=== PATIENT | female | born 1955 | race Caucasian/White ===

== ENCOUNTER → 2017-10-19 10:04 | Outpatient (CLI) | payer BC, SELFPAY ==
--- NOTE | 2017-10-19 10:21 | US_ITS ---
US thyroid HISTORY: Follow-up thyroid nodules ITS.REASON: NECK MASS ORDERING PHYSICIAN: Jorge Soares MD PATIENT AGE: 61 years COMPARISON: 12/04/2014 FINDINGS: The right lobe measures 6.5 x 2.8 x 3.4 cm. The left lobe measures 8 x 3 x 3.6 cm. There are multiple bilateral thyroid nodules with a partially cystic nodule involving the mid aspect of the right lobe at 2.6 cm previously 2.3 cm. A cystic/solid nodules present posteriorly at 2.4 cm previously 1.6 cm. On the left there is a mixed cystic and solid nodule which measures 3.3 x 2.4 cm previously 3 x 1.8 cm. IMPRESSION: Thyromegaly with multiple bilateral complex thyroid nodules as described above. The thyroid gland and the nodules are slightly larger.
== END ==
PROVIDERS: Family Provider Family Medicine; PCP Internal Medicine Adolescent Medicine; Visit Provider Internal Medicine Adolescent Medicine
DX: R22.1 Localized swelling, mass and lump, neck (principal); E04.1 Nontoxic single thyroid nodule
CPT/HCPCS: 76536

== ENCOUNTER → 2018-01-28 15:23 | Outpatient (CLI) | payer BC, SELFPAY ==
--- NOTE | 2018-01-28 15:26 | US_ITS ---
US thyroid HISTORY: Follow-up thyroid nodule ITS.REASON: hx thyroid nodule- dom right nodule ORDERING PHYSICIAN: Saran Mahoney MD PATIENT AGE: 62 years Comparison: 10/19/2017 FINDINGS: Right lobe measures 3.6 x 3.2 x 6 cm. There are multiple cystic, solid, and mixed nodules including a partially cystic nodule in the upper pole 2.7 cm unchanged. Mostly cystic nodule mid polar region at 2 cm unchanged. Solid 2.5 cm nodule lower pole unchanged The left lobe is enlarged at 6.5 x 3 cm with multiple cystic and solid nodules. Mixed nodule in the upper pole 1.8 cm unchanged. Mixed solid/cystic nodule upper pole 3 cm unchanged. Complex 4.6 x 3.7 cm nodule lower pole unchanged. IMPRESSION: No change multinodular goiter
== END ==
PROVIDERS: Family Provider Family Medicine; PCP Internal Medicine Adolescent Medicine; Visit Provider Otolaryngology
DX: E04.1 Nontoxic single thyroid nodule (principal); E04.9 Nontoxic goiter, unspecified
CPT/HCPCS: 76536

== ENCOUNTER → 2018-07-09 15:23 | Outpatient (CLI) | payer BC, SELFPAY ==
--- NOTE | 2018-07-09 15:27 | US_ITS ---
US thyroid HISTORY: ITS.REASON: goiter. dominate right nodule 2.7cm ORDERING PHYSICIAN: Saran Mahoney MD PATIENT AGE: 62 years Comparison: 01/28/2018 FINDINGS: The right lobe is 6.8 x 3.2 x 3.5 cm. Nodule A: 3.2 x 2 cm partially cystic nodule within the upper pole. Unchanged Nodule B: Mostly cystic 2.7 cm nodule upper pole. Unchanged Nodule C: 2.7 cm x 1.6 solid nodule lower pole. Unchanged. Nodular D: 15 mm mixed echogenic nodule inferior pole mandible present previously but not well demonstrated The left lobe is 6.9 x 3.9 x 4.2 cm with multiple nodules. Nodule A: Mixed echogenic 2.2 cm upper pole probably unchanged Nodule D: Solid and cystic 3 cm nodule mid polar region unchanged Nodule C: Complex cystic 2.6 cm nodule mid pole unchanged Nodule D: 2.7 cm mixed nodule lower pole unchanged IMPRESSION: Overall no change in the multinodular goiter
== END ==
PROVIDERS: PCP Internal Medicine Adolescent Medicine; Visit Provider Otolaryngology
DX: E04.1 Nontoxic single thyroid nodule (principal); E04.9 Nontoxic goiter, unspecified
CPT/HCPCS: 76536

== ENCOUNTER → 2018-07-29 09:49 | Outpatient (CLI) | payer BC, SELFPAY ==
--- NOTE | 2018-07-29 | US_ITS ---
FNA w guidance, US thyroid HISTORY: Right thyroid dominant nodule ITS.REASON: thyroid nodule ORDERING PHYSICIAN: Saran Mahoney MD PATIENT AGE: 62 years COMPARISON: 07/09/2018 Prebiopsy ultrasound: Ultrasound performed of the right lobe of the thyroid gland for biopsy planning. The nodule was demonstrated and appropriate site marked for biopsy TECHNIQUE: Following obtaining informed consent, using aseptic technique and local anesthesia with buffered lidocaine, fine-needle aspiration was performed of the nodule of interest using sonographic guidance. 3 passes were made into the nodule with a 25-gauge needle. Specimen was given to cytology. Approximately 3 cc of greenish fluid was aspirated during the FNA. Material was present within the aspirate that was felt adequate. The patient tolerated the procedure well without evidence of immediate complications and left the ultrasound suite in stable condition. CYTOLOGY:Nondiagnostic aspirate IMPRESSION: The aspirate was nondiagnostic. There were no immediate complications. Recommend repeat FNA with city director present during the procedure.
== END ==
PROVIDERS: PCP Internal Medicine Adolescent Medicine; Visit Provider Otolaryngology
DX: E04.9 Nontoxic goiter, unspecified (principal)
CPT/HCPCS: 10022; 76536

== ENCOUNTER → 2018-09-23 11:57 | Outpatient (CLI) | payer BC, SELFPAY ==
[2018-09-23 13:03] LABS: Basophils % 0.5 % (0.1-2.0); Eosinophils # 0.1 K/mm3 (0.0-0.4); Eosinophils % 2.3 % (0.1-12.0); Hemoglobin 13.3 g/dL (12.2-16.2); Lymphocytes # 1.5 K/mm3 (0.7-4.5); Lymphocytes % 31.9 % (10-50); Mean Corpuscular HGB Conc 32.6 g/dL (31.8-35.4); Mean Corpuscular Hemoglobin 31.3 pg (27.0-31.2); Mean Corpuscular Volume 96.2 fl (81-99); Mean Platelet Volume 7.9 fl (7.4-10.4); Monocytes # 0.2 K/mm3 (0.1-1.0); Monocytes % 4.3 % (1.7-9.3); Neutrophils # 2.8 K/mm3 (1.8-7.8); Platelet Count 186 K/mm3 (142-424); Red Blood Count 4.26 M/mm3 (4.20-5.40); Red Cell Distribution Width 13.2 % (11.5-17.5); White Blood Count 4.6 K/mm3 (4.8-10.8)
[2018-09-23 13:07] LABS: Alanine Aminotransferase 35 U/L (12-78); Albumin Level 3.6 gm/dL (3.4-5.0); Albumin/Globulin Ratio 1.1 (1.1-1.8); Alkaline Phosphatase 107 U/L (46-116); Aspartate Amino Transferase 43 U/L (15-37); Bilirubin,Total 0.8 mg/dL (0.2-1.0); Blood Urea Nitrogen 14 mg/dL (7-18); Calcium 8.8 mg/dL (8.5-10.1); Carbon Dioxide 29 mmol/L (21.0-32.0); Chloride 106 mmol/L (98-107); Creatinine,Serum 0.73 mg/dL (0.55-1.02); Estimated Glomerular Filt Rate 81 ml/min (>60); GFR (African American) 98 ML/MIN (>60); Globulin 3.2 gm/dl (1.3-3.2); Glucose 109 mg/dL (74-106); Sodium 143 mmol/L (136-145); Total Protein,Serum 6.8 gm/dL (6.4-8.2)
== END ==
PROVIDERS: PCP Internal Medicine Adolescent Medicine; Visit Provider Otolaryngology
DX: Z01.810 Encounter for preprocedural cardiovascular examination (principal); Z01.812 Encounter for preprocedural laboratory examination
CPT/HCPCS: 36415; 80053; 85025; 93005

== ENCOUNTER → 2018-11-04 10:31 | Outpatient (CLI) | payer BC, SELFPAY ==
[2018-11-04 11:59] LABS: Calcium 9.3 mg/dL (8.5-10.1); Free T4 (Free Thyroxine) 1.27 ng/dl (0.76-1.46); Thyroid Stimulating Hormone 0.03 uIU/ml (0.358-3.740)
== END ==
PROVIDERS: Visit Provider Otolaryngology
DX: D34 Benign neoplasm of thyroid gland (principal); E06.5 Other chronic thyroiditis; Z98.890 Other specified postprocedural states
CPT/HCPCS: 36415; 82310; 84439; 84443

== ENCOUNTER → 2018-12-27 12:22 | Outpatient (POV) | payer BC, SELFPAY | PROVIDERS: Visit Provider Specialist | DX: R20.2 Paresthesia of skin (principal) | CPT/HCPCS: 95886; 95909 ==

== ENCOUNTER → 2019-06-14 09:04 | Outpatient (CLI) | payer BC, SELFPAY ==
[2019-06-14 09:37] LABS: Basophils % 0.6 % (0.1-2.0); Eosinophils # 0.1 K/mm3 (0.0-0.4); Hematocrit 41.9 % (37.0-47.0); Lymphocytes # 1.6 K/mm3 (0.7-4.5); Lymphocytes % 29.6 % (10-50); Mean Corpuscular HGB Conc 33.3 g/dL (31.8-35.4); Mean Corpuscular Hemoglobin 32.2 pg (27.0-31.2); Mean Corpuscular Volume 96.6 fl (81-99); Mean Platelet Volume 9.1 fl (7.4-10.4); Monocytes # 0.3 K/mm3 (0.1-1.0); Monocytes % 5.6 % (1.7-9.3); Neutrophils # 3.3 K/mm3 (1.8-7.8); Neutrophils % 62.2 % (37.0-80.0); Platelet Count 190 K/mm3 (142-424); Red Blood Count 4.34 M/mm3 (4.20-5.40); Red Cell Distribution Width 13.3 % (11.5-17.5); White Blood Count 5.3 K/mm3 (4.8-10.8)
[2019-06-14 11:07] LABS: Alanine Aminotransferase 35 U/L (12-78); Albumin Level 3.7 gm/dL (3.4-5.0); Albumin/Globulin Ratio 1.2 (1.1-1.8); Alkaline Phosphatase 124 U/L (46-116); Anion Gap 9.2 mEq/L (5-15); Aspartate Amino Transferase 34 U/L (15-37); Blood Urea Nitrogen 19 mg/dL (7-18); Carbon Dioxide 32 mmol/L (21.0-32.0); Chloride 106 mmol/L (98-107); Chol/HDL Ratio 3.3 (1-3.5); Cholesterol 230 mg/dL (140-200); Creatinine,Serum 0.74 mg/dL (0.55-1.02); Estimated Glomerular Filt Rate 80 ml/min (>60); Free Thyroxine Index 3.2 ug/dL (5.93-13.13); GFR (African American) 97 ML/MIN (>60); Glucose 110 mg/dL (74-106); HDL Cholesterol 69 mg/dL (29-89); LDL Cholesterol 141 mg/dL (0-130); Potassium 3.2 mmoL/L (3.5-5.1); Sodium 144 mmol/L (136-145); Thyroid Stimulating Hormone 0.02 uIU/ml (0.358-3.740); Total Protein,Serum 6.7 gm/dL (6.4-8.2); Triglycerides 98 mg/dL (30-200); Triiodothryronine (T3) Uptake 36 % (31-39); VLDL Cholesterol 20 mg/dL (0-40)
[2019-06-15 16:25] LABS: Vitamin B12 743 pg/mL (232-1245); Vitamin D 25 Hydroxy 50.9 ng/mL (30.0-100.0)
== END ==
PROVIDERS: Visit Provider Internal Medicine Adolescent Medicine
DX: E78.2 Mixed hyperlipidemia (principal); E05.90 Thyrotoxicosis, unspecified without thyrotoxic crisis or storm; E55.9 Vitamin D deficiency, unspecified; E53.8 Deficiency of other specified B group vitamins
CPT/HCPCS: 36415; 80053; 80061; 82607; 82652; 84436; 84443; 84479; 85025

== ENCOUNTER → 2019-09-12 10:24 | Outpatient (CLI) | payer BC, SELFPAY ==
[2019-09-12 11:59] LABS: Alkaline Phosphatase 99 U/L (46-116); Blood Urea Nitrogen 18 mg/dL (7-18); Chloride 105 mmol/L (98-107); Thyroid Stimulating Hormone 0.06 uIU/ml (0.358-3.740)
[2019-09-12 12:01] LABS: Alanine Aminotransferase 13 U/L (12-78); Albumin Level 3.6 gm/dL (3.4-5.0); Albumin/Globulin Ratio 1.2 (1.1-1.8); Anion Gap 11.8 mEq/L (5-15); Aspartate Amino Transferase 23 U/L (15-37); Bilirubin,Total 0.7 mg/dL (0.2-1.0); Calcium 8.8 mg/dL (8.5-10.1); Carbon Dioxide 31 mmol/L (21.0-32.0); Chol/HDL Ratio 3.5 (1-3.5); Cholesterol 209 mg/dL (140-200); Estimated Glomerular Filt Rate 56 ml/min (>60); GFR (African American) 68 ML/MIN (>60); Glucose 102 mg/dL (74-106); HDL Cholesterol 59 mg/dL (29-89); LDL Cholesterol 130 mg/dL (0-130); Potassium 3.8 mmoL/L (3.5-5.1); Sodium 144 mmol/L (136-145); Total Protein,Serum 6.6 gm/dL (6.4-8.2); Triglycerides 100 mg/dL (30-200); VLDL Cholesterol 20 mg/dL (0-40)
== END ==
PROVIDERS: Visit Provider Internal Medicine Adolescent Medicine
DX: E89.0 Postprocedural hypothyroidism (principal); E87.6 Hypokalemia; E78.2 Mixed hyperlipidemia
CPT/HCPCS: 36415; 80053; 80061; 84443

== ENCOUNTER → 2020-02-02 15:46 | Outpatient (CLI) | payer BC, SELFPAY ==
[2020-02-02 19:36] LABS: Free T4 (Free Thyroxine) 1.04 ng/dl (0.78-2.19)
[2020-02-02 19:49] LABS: Thyroid Stimulating Hormone 0.29 uIU/mL (0.465-4.68)
== END ==
PROVIDERS: Visit Provider Otolaryngology
DX: E03.9 Hypothyroidism, unspecified (principal)
CPT/HCPCS: 36415; 84439; 84443

== ENCOUNTER → 2020-02-20 12:53 | Outpatient (CLI) | payer BC, SELFPAY ==
--- NOTE | 2020-02-20 12:54 | US_ITS ---
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 A complex nodules present in the mid aspect of the left lobe of the thyroid gland at 3.7 x 3 cm containing both cystic and solid components. The largest cystic component measures 2.6 cm with the solid component measuring approximately 2.8 cm. This is overall not significantly changed from the previous exam. IMPRESSION: Complex cystic and solid mass of the left lobe of the thyroid gland not significantly changed. Prior right thyroidectomy Dictated by: Chris Oneill MD 02/21/2020 11:19 Electronically signed by Chris Oneill MD in [place] 02/21/2020 11:19
== END ==
PROVIDERS: PCP Internal Medicine Adolescent Medicine; Visit Provider Otolaryngology
DX: E03.9 Hypothyroidism, unspecified (principal)
CPT/HCPCS: 76536

== ENCOUNTER → 2020-03-21 09:49 | Outpatient (CLI) | payer BC, SELFPAY ==
--- NOTE | 2020-03-21 09:49 | US_ITS ---
PROCEDURE: US FNA THYROID CLINICAL INDICATION: Dominant nodule on the left COMPARISON: US US THYROID from 02/20/2020 TECHNIQUE: Pre biopsy ultrasound demonstrates multiple left thyroid nodules. The dominant nodule in the mid polar region with cystic component was targeted for biopsy. Following obtaining informed consent, using aseptic technique and local anesthesia with buffered lidocaine, fine-needle aspiration was performed of the nodule of interest using sonographic guidance. 3 passes were made into the nodule with a [id number] needle. Specimen was given to cytology. FINDINGS: CYTOLOGY: Consistent with benign cystic follicular nodule IMPRESSION: Ultrasound-guided thyroid FNA of the left lobe demonstrates a benign cystic follicular nodule. The patient tolerated the procedure well without evidence of immediate complications and left the ultrasound suite in stable condition. Dictated b Chris Oneill MD 03/23/2020 10:58 Chris Oneill MD in [facility] 03/23/2020 10:58
== END ==
PROVIDERS: PCP Internal Medicine Adolescent Medicine; Visit Provider Otolaryngology
DX: E04.1 Nontoxic single thyroid nodule (principal)
CPT/HCPCS: 10005; 76942

== ENCOUNTER → 2020-04-05 11:10 | Outpatient (CLI) | payer BC, SELFPAY ==
[2020-04-05 11:38] LABS: Basophils % 0.4 % (0.1-2.0); Eosinophils # 0.2 K/mm3 (0.0-0.4); Eosinophils % 2.3 % (0.1-12.0); Hematocrit 39.6 % (37.0-47.0); Hemoglobin 14.3 g/dL (12.2-16.2); Lymphocytes % 26.9 % (10-50); Mean Corpuscular HGB Conc 36.2 g/dL (31.8-35.4); Mean Corpuscular Hemoglobin 33.8 pg (27.0-31.2); Mean Corpuscular Volume 93.5 fl (81-99); Mean Platelet Volume 8.8 fl (7.4-10.4); Monocytes # 0.3 K/mm3 (0.1-1.0); Monocytes % 4.1 % (1.7-9.3); Neutrophils % 66.4 % (37.0-80.0); Platelet Count 199 K/mm3 (142-424); Red Blood Count 4.23 M/mm3 (4.20-5.40); Red Cell Distribution Width 13.4 % (11.5-17.5); White Blood Count 7.5 K/mm3 (4.8-10.8)
[2020-04-05 12:06] LABS: Chloride 104 mmol/L (98-107); Potassium 3.6 mmoL/L (3.5-5.1); Sodium 141 mmol/L (136-145)
[2020-04-05 12:08] LABS: Alanine Aminotransferase 24 U/L (12-78); Aspartate Amino Transferase 55 U/L (14-36); Blood Urea Nitrogen 18 mg/dl (7-17); Estimated Glomerular Filt Rate 73 ml/min (>60); GFR (African American) 88 ML/MIN (>60)
[2020-04-05 12:09] LABS: Albumin Level 4.2 g/dl (3.5-5.0); Albumin/Globulin Ratio 1.6 (1.1-1.8); Alkaline Phosphatase 115 U/L (38-126); Anion Gap 12.6 mEq/L (5-15); Bilirubin,Total 1.2 mg/dl (0.2-1.3); Calcium 9.3 mg/dl (8.4-10.2); Carbon Dioxide 28 mmol/L (22.0-30.0); Cholesterol 219 mg/dl (140-200); Globulin 2.6 g/dL (1.3-3.2); Glucose 120 mg/dl (74-100); Total Protein,Serum 6.8 g/dl (6.3-8.2); Triglycerides 142 mg/dl (30-150); VLDL Cholesterol 28 mg/dL (0-40)
[2020-04-05 12:10] LABS: Chol/HDL Ratio 3.5 (1-3.5); HDL Cholesterol 62 mg/dl (40-60)
[2020-04-05 12:21] LABS: Direct LDL Cholesterol 121.18 mg/dL (100-129)
[2020-04-05 12:26] LABS: 25-OH Vitamin D, Total 65.1 ng/mL (30-100); Triiodothryronine (T3) Uptake 34 % (23.5-40.5)
[2020-04-05 12:27] LABS: Free Thyroxine Index 3.2 ug/dL (5.93-13.13); T4 (Thyroxine) 9.4 ug/dl (5.53-11.0)
[2020-04-05 12:41] LABS: Thyroid Stimulating Hormone 0.02 uIU/mL (0.465-4.68)
== END ==
PROVIDERS: Visit Provider Internal Medicine Adolescent Medicine
DX: E05.90 Thyrotoxicosis, unspecified without thyrotoxic crisis or storm (principal); E78.2 Mixed hyperlipidemia; E55.9 Vitamin D deficiency, unspecified
CPT/HCPCS: 36415; 80053; 80061; 82306; 84436; 84443; 84479; 85025

== ENCOUNTER → 2020-07-16 12:48 | Outpatient (CLI) | payer BC, SELFPAY ==
--- NOTE | 2020-07-16 12:48 | US_ITS ---
PROCEDURE: US THYROID CLINICAL INDICATION: hx nodule Follow-up thyroid nodule COMPARISON: US THY US THYROID from 12/04/2014 US US THYROID from 02/20/2020 US US FNA THYROID from 03/21/2020 FINDINGS: The right lobe has been removed. Multinodular goiter is noted on the left with cystic and solid components of multiple nodules. In the upper pole there is a 19 mm nodule with cystic and solid components unchanged. In the mid polar region there is a 3 cm cystic and solid nodule not significantly changed. A cyst is present in the lower pole at 19 mm. An additional cystic and solid nodule at 3 cm is present in the lower pole with a sister ule cystic component unchanged. IMPRESSION: No change multinodular goiter on the left. Prior right thyroidectomy Dictated by: Chris Oneill MD 07/17/2020 12:47 Chris Oneill MD in [facility] 07/17/2020 12:47
== END ==
PROVIDERS: PCP Internal Medicine Adolescent Medicine; Visit Provider Otolaryngology
DX: E04.1 Nontoxic single thyroid nodule (principal)
CPT/HCPCS: 76536

== ENCOUNTER → 2020-07-16 14:05 | Outpatient (CLI) | payer BC, SELFPAY ==
[2020-07-16 16:19] LABS: Thyroid Stimulating Hormone 0.02 uIU/mL (0.465-4.68)
== END ==
PROVIDERS: Visit Provider Otolaryngology
DX: E04.1 Nontoxic single thyroid nodule (principal)
CPT/HCPCS: 36415; 84439; 84443

== ENCOUNTER → 2021-01-24 11:01 | Outpatient (CLI) | payer BC, SELFPAY ==
[2021-01-24 12:17] LABS: Free T4 (Free Thyroxine) 1.46 ng/dl (0.78-2.19)
[2021-01-24 12:31] LABS: Thyroid Stimulating Hormone 0.02 uIU/mL (0.465-4.68)
--- NOTE | 2021-01-24 14:21 | US_ITS ---
PROCEDURE: US THYROID CLINICAL INDICATION: hx thyroid nodule COMPARISON: US US THYROID from 02/20/2020 US US FNA THYROID from 03/21/2020 US US THYROID from 07/16/2020 FINDINGS: Right lobe: Status post right thyroidectomy Left lobe: 4.0cm x 7.8cm x 4.7cm.. There are multiple cystic, mixed, and solid nodules of the left lobe of the thyroid gland. In the upper pole there is a mixed nodule at 1.5 x 1.7 cm not significantly changed. In the mid polar region mixed solid and cystic nodule is present at 2.6 x 2.6 cm not significantly changed. In the mid polar region there is a an 18 mm cyst unchanged. In the lower pole there is a 4 x 4 cm nodule not significantly changed. Mixed nodule Isthmus: Unremarkable Additional findings: IMPRESSION: No change multinodular goiter on the left and the previous right thyroidectomy Dictated by: Chris Oneill MD 01/25/2021 08:42 Chris Oneill MD in [facility] 01/25/2021 08:42
[2021-01-25 09:18] LABS: Thyroid Peroxidase Antibodies <9 IU/mL (0-34)
[2021-01-29 13:04] LABS: Thyroid Stimulating Immunoglob <0.10 IU/L (0.00-0.55)
== END ==
PROVIDERS: PCP Internal Medicine Adolescent Medicine; Visit Provider Otolaryngology
DX: E03.9 Hypothyroidism, unspecified (principal); E04.9 Nontoxic goiter, unspecified
CPT/HCPCS: 36415; 76536; 84439; 84443; 84445; 86376

== ENCOUNTER → 2021-09-03 11:14 | Outpatient (CLI) | payer BC, SELFPAY ==
[2021-09-03 11:35] LABS: Basophils # 0.1 K/mm3 (0-0.2); Basophils % 2.1 % (0.1-2.0); Eosinophils # 0.2 K/mm3 (0.0-0.4); Eosinophils % 3.9 % (0.1-12.0); Hematocrit 44.1 % (37.0-47.0); Hemoglobin 14.7 g/dL (12.2-16.2); Lymphocytes # 2.5 K/mm3 (0.7-4.5); Lymphocytes % 40.9 % (10-50); Mean Corpuscular HGB Conc 33.3 g/dL (31.8-35.4); Mean Corpuscular Hemoglobin 32.4 pg (27.0-31.2); Mean Corpuscular Volume 97.1 fl (81-99); Mean Platelet Volume 8.5 fl (7.4-10.4); Monocytes # 0.3 K/mm3 (0.1-1.0); Monocytes % 4.3 % (1.7-9.3); Neutrophils # 2.9 K/mm3 (1.8-7.8); Neutrophils % 48.8 % (37.0-80.0); Platelet Count 217 K/mm3 (142-424); Red Blood Count 4.54 M/mm3 (4.20-5.40); Red Cell Distribution Width 14.3 % (11.5-17.5)
[2021-09-03 12:09] LABS: Alanine Aminotransferase 30 U/L (12-78); Albumin Level 4.6 g/dl (3.5-5.0); Albumin/Globulin Ratio 1.9 (1.1-1.8); Alkaline Phosphatase 112 U/L (38-126); Anion Gap 8.8 mEq/L (5-15); Aspartate Amino Transferase 55 U/L (14-36); Bilirubin,Total 0.8 mg/dl (0.2-1.3); Blood Urea Nitrogen 18 mg/dl (7-17); Calcium 9.6 mg/dl (8.4-10.2); Carbon Dioxide 31 mmol/L (22.0-30.0); Chloride 102 mmol/L (98-107); Chol/HDL Ratio 3.8 (1-3.5); Cholesterol 257 mg/dl (140-200); Estimated Glomerular Filt Rate 63 ml/min (>60); GFR (African American) 77 ML/MIN (>60); Globulin 2.4 g/dL (1.3-3.2); Glucose 126 mg/dl (74-100); HDL Cholesterol 67 mg/dl (40-60); Potassium 3.8 mmoL/L (3.5-5.1); Sodium 138 mmol/L (136-145); Triglycerides 126 mg/dl (30-150); VLDL Cholesterol 25 mg/dL (0-40)
[2021-09-03 12:27] LABS: 25-OH Vitamin D, Total 60.1 ng/mL (30-100); Free Thyroxine Index 3.1 ug/dL (5.93-13.13); T4 (Thyroxine) 9.8 ug/dl (5.53-11.0); Triiodothryronine (T3) Uptake 32 % (23.5-40.5)
[2021-09-03 12:40] LABS: Thyroid Stimulating Hormone 0.07 uIU/mL (0.465-4.68)
== END ==
PROVIDERS: PCP Internal Medicine Adolescent Medicine; Visit Provider Internal Medicine Adolescent Medicine
DX: E05.90 Thyrotoxicosis, unspecified without thyrotoxic crisis or storm (principal); E78.2 Mixed hyperlipidemia; E55.9 Vitamin D deficiency, unspecified
CPT/HCPCS: 36415; 80053; 80061; 82306; 84436; 84443; 84479; 85025

== ENCOUNTER → 2022-03-10 12:09 | Outpatient (CLI) | payer BC, SELFPAY ==
--- NOTE | 2022-03-10 12:13 | XR_ITS ---
FINAL REPORT CLINICAL HISTORY: RIGHT FOOT PAIN; ACUTE PAIN DUE TO TRAUMA FINDINGS: RIGHT FOOT Three views of the right foot demonstrate acute displaced fractures of the distal 3rd and 4th metatarsals. There is an age indeterminate fracture of the distal phalanx of the 3rd toe which may also be acute. 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 There is soft tissue edema of the forefoot. IMPRESSION: Acute fractures of the distal 3rd and 4th metatarsals. Fracture of the distal phalanx of the 3rd toe may also be acute. Reviewed, Interpreted and Dictated by Merna Ortega MD Transcribed by Karin Gil Authenticated and [facility]
== END ==
PROVIDERS: PCP Internal Medicine Adolescent Medicine; Visit Provider Nurse Practitioner Family
DX: M79.671 Pain in right foot (principal); G89.11 Acute pain due to trauma
CPT/HCPCS: 73630

== ENCOUNTER 2022-03-10 13:20 | Outpatient (RCR) | payer BC, SELFPAY | END 2022-03-10 14:20 | disposition home or self-care (01) | LOC: PT 13:20 | PROVIDERS: Visit Provider Nurse Practitioner Family | DX: S92.334A Nondisplaced fracture of third metatarsal bone, right foot, initial encounter for closed fracture (principal) | CPT/HCPCS: 97760 ==

== ENCOUNTER 2022-07-31 11:00 | Outpatient (RCR) | payer BC, SELFPAY | END 2022-07-31 11:05 | disposition home or self-care (01) | LOC: PT 11:00 | PROVIDERS: PCP Internal Medicine Adolescent Medicine; Visit Provider Nurse Practitioner Family | DX: M79.671 Pain in right foot (principal); S92.501A Displaced unspecified fracture of right lesser toe(s), initial encounter for closed fracture; S92.341A Displaced fracture of fourth metatarsal bone, right foot, initial encounter for closed fracture; S92.331A Displaced fracture of third metatarsal bone, right foot, initial encounter for closed fracture; S99.921A Unspecified injury of right foot, initial encounter | CPT/HCPCS: 97010; 97014; 97016; 97110; 97112; 97140; 97163; 97164; 97530; 97535; G0283 ==

== ENCOUNTER → 2022-08-14 14:37 | Outpatient (CLI) | payer BC, SELFPAY ==
--- NOTE | 2022-08-14 14:43 | XR_ITS ---
FINAL REPORT CLINICAL HISTORY: RT ANKLE PAIN FINDINGS: RIGHT ANKLE: Three views of the right ankle were obtained. There is postoperative change in the medial midfoot with a screw plate and multiple screws. There is a nondisplaced fracture of the posterior distal tibia. There is a probable vertical fracture in the medial tibia extending to the tibiotalar joint. There is a small calcaneal spur. There are mild degenerative changes. Soft tissue swelling is greatest laterally. IMPRESSION: Nondisplaced fracture of the posterior distal tibia with a probable vertical fracture medially extending to the tibiotalar joint. Reviewed, Interpreted and Dictated by Juan Luis Spann III, MD Transcribed by Dayne Prajapati Authenticated and [facility]
--- NOTE | 2022-08-14 14:43 | XR_ITS ---
FINAL REPORT CLINICAL HISTORY: RT FOOT PAIN FINDINGS: 3 views of the right foot were obtained. There is a possible nondisplaced fracture of the inferior tip of the lateral malleolus. There are chronic fractures of the distal 3rd and 4th metatarsals. There is lucency through the proximal lateral aspect of the 1st proximal phalanx. A nondisplaced fracture in this region cannot be excluded. There are mild degenerative changes. There is postoperative change involving the medial cuneiform and 1st metatarsal. There is postoperative change of the distal 1st metatarsal. IMPRESSION: Possible nondisplaced fracture of the inferior tip of the lateral malleolus. Postoperative changes. Lucency in the proximal lateral aspect of the 1st proximal phalanx. Nondisplaced fracture not excluded. Chronic fractures of the distal 3rd and 4th metatarsals. Reviewed, Interpreted and Dictated by Juan Luis Spann III, MD Transcribed by Dayne Prajapati Authenticated and [facility]
== END ==
PROVIDERS: PCP Internal Medicine Adolescent Medicine; Visit Provider Nurse Practitioner Family
DX: M25.571 Pain in right ankle and joints of right foot (principal); M79.671 Pain in right foot
CPT/HCPCS: 73610; 73630

== ENCOUNTER → 2022-12-05 10:49 | Outpatient (CLI) | payer MEDICARE, BC, SELFPAY ==
[2022-12-05 11:43] LABS: Basophils % 0.8 % (0.1-2.0); Eosinophils # 0.1 K/mm3 (0.0-0.4); Eosinophils % 1.9 % (0.1-12.0); Hematocrit 41.3 % (37.0-47.0); Hemoglobin 13.9 g/dL (12.2-16.2); Lymphocytes % 42.7 % (10-50); Mean Corpuscular HGB Conc 33.5 g/dL (31.8-35.4); Mean Corpuscular Hemoglobin 31.5 pg (27.0-31.2); Mean Corpuscular Volume 93.9 fl (81-99); Mean Platelet Volume 8.8 fl (7.4-10.4); Monocytes # 0.2 K/mm3 (0.1-1.0); Neutrophils # 2.4 K/mm3 (1.8-7.8); Neutrophils % 49.6 % (37.0-80.0); Platelet Count 229 K/mm3 (142-424); Red Cell Distribution Width 13.7 % (11.5-17.5); White Blood Count 4.7 K/mm3 (4.8-10.8)
[2022-12-05 12:26] LABS: Alanine Aminotransferase 18 U/L (12-78); Albumin Level 4.3 g/dl (3.5-5.0); Albumin/Globulin Ratio 1.7 (1.1-1.8); Alkaline Phosphatase 130 U/L (38-126); Anion Gap 9.9 mEq/L (5-15); Aspartate Amino Transferase 37 U/L (14-36); Bilirubin,Total 1.4 mg/dl (0.2-1.3); Blood Urea Nitrogen 18 mg/dl (7-17); Calcium 8.8 mg/dl (8.4-10.2); Carbon Dioxide 29 mmol/L (22.0-30.0); Chloride 105 mmol/L (98-107); Chol/HDL Ratio 3.2 (1-3.5); Cholesterol 180 mg/dl (140-200); Estimated Glomerular Filt Rate 84 ml/min (>60); GFR (African American) 102 ML/MIN (>60); Globulin 2.6 g/dL (1.3-3.2); Glucose 109 mg/dl (74-100); HDL Cholesterol 57 mg/dl (40-60); Potassium 3.9 mmoL/L (3.5-5.1); Sodium 140 mmol/L (136-145); Total Protein,Serum 6.9 g/dl (6.3-8.2); Triglycerides 78 mg/dl (30-150); VLDL Cholesterol 16 mg/dL (0-40)
[2022-12-05 12:44] LABS: Free Thyroxine Index 3.9 ug/dL (5.93-13.13); T4 (Thyroxine) 10.7 ug/dl (5.53-11.0); Triiodothryronine (T3) Uptake 36 % (23.5-40.5)
[2022-12-05 12:58] LABS: Thyroid Stimulating Hormone < 0.02 uIU/mL (0.465-4.68)
[2022-12-05 13:47] LABS: Direct LDL Cholesterol 88.21 mg/dL (100-129)
== END ==
PROVIDERS: PCP Internal Medicine Adolescent Medicine; Visit Provider Internal Medicine Adolescent Medicine
DX: E05.90 Thyrotoxicosis, unspecified without thyrotoxic crisis or storm (principal); E55.9 Vitamin D deficiency, unspecified; E78.2 Mixed hyperlipidemia; E89.0 Postprocedural hypothyroidism
CPT/HCPCS: 36415; 80053; 80061; 82306; 84436; 84443; 84479; 85025

== ENCOUNTER → 2023-07-07 13:59 | Outpatient (CLI) | payer MEDICARE, BC, SELFPAY ==
[2023-07-07 16:56] LABS: Anion Gap 10.6 mEq/L (5-15); Blood Urea Nitrogen 19 mg/dl (7-17); Calcium 8.7 mg/dl (8.4-10.2); Carbon Dioxide 28 mmol/L (22.0-30.0); Chloride 102 mmol/L (98-107); Estimated Glomerular Filt Rate 72 ml/min (>60); GFR (African American) 87 ML/MIN (>60); Glucose 115 mg/dl (74-100); Potassium 3.6 mmoL/L (3.5-5.1); Sodium 137 mmol/L (136-145)
[2023-07-07 17:22] LABS: Thyroid Stimulating Hormone < 0.02 uIU/mL (0.465-4.68)
== END ==
PROVIDERS: PCP Internal Medicine Adolescent Medicine; Visit Provider Internal Medicine Adolescent Medicine
DX: E05.90 Thyrotoxicosis, unspecified without thyrotoxic crisis or storm (principal)
CPT/HCPCS: 36415; 80048; 84443

== ENCOUNTER 2023-10-19 10:22 | Outpatient (CLI) | payer MEDICARE, BC, SELFPAY ==
[2023-10-19 11:34] LABS: Free Thyroxine Index 2.6 ug/dL (5.93-13.13); T4 (Thyroxine) 8.2 ug/dl (5.53-11.0); Triiodothryronine (T3) Uptake 32 % (23.5-40.5)
[2023-10-19 11:47] LABS: Thyroid Stimulating Hormone 0.21 uIU/mL (0.465-4.68)
== END 2023-10-19 23:59 ==
PROVIDERS: PCP Internal Medicine Adolescent Medicine; Visit Provider Internal Medicine Adolescent Medicine
DX: E05.90 Thyrotoxicosis, unspecified without thyrotoxic crisis or storm (principal); Z79.899 Other long term (current) drug therapy
CPT/HCPCS: 36415; 84436; 84443; 84479

== ENCOUNTER 2023-11-04 15:31 | Outpatient (CLI) | payer MEDICARE, BC, SELFPAY ==
--- NOTE | 2023-11-04 15:44 | US_ITS ---
FINAL REPORT CLINICAL HISTORY: GOITER COMPARISON: 01/24/2021 FINDINGS: THYROID ULTRASOUND: The right lobe of the thyroid has been surgically removed. The left lobe of the thyroid measures 6.3 x 3.6 x 3.4 cm in size. The isthmus measures 3 mm in thickness. There are multiple nodules present in the left lobe of the thyroid gland, and direct comparison is somewhat difficult. There is a mid left lobe nodule which measures 31 x 28 x 22 mm in size, cystic and solid, isoechoic, a TI-RADS category 2 nodule. There is a lower pole nodule measuring 20 x 17 x 17 mm in size, mostly solid and isoechoic, a TI-RADS category 3 nodule. There is a third sizable nodule measuring 19 x 16 x 12 mm in size, spongiform, a TI-RADS category 1 nodule. Multiple other smaller nodules are present as well. IMPRESSION: Right lobe of the thyroid surgically absent. Left lobe of the thyroid large, with multiple nodules as described above. Direct comparison is difficult, however the overall appearance of the nodules is relatively stable. Consider 12-month follow-up ultrasound for further evaluation. Reviewed, Interpreted and Dictated by Juan Luis Spann III, MD Transcribed by Adrianne Urbano Authenticated and [facility]
== END 2023-11-04 23:59 ==
LOC: RAD 15:32
PROVIDERS: PCP Internal Medicine Adolescent Medicine; Visit Provider Internal Medicine Adolescent Medicine
DX: E04.9 Nontoxic goiter, unspecified (principal)
CPT/HCPCS: 76536

== ENCOUNTER 2023-11-29 13:31 | Emergency (ER) | payer MEDICARE, BC, SELFPAY ==
[2023-11-29 14:20] VITALS: BP 193/96; PULSE 71; RESP 18; TEMP 36.8; O2SAT 99; BMI 23.9
--- NOTE | 2023-11-29 14:34 | ED_ITS ---
Discharge Plan Disposition Patient Disposition: Home, Self-Care Condition: Good Prescriptions Prescriptions: New amlodipine 2.5 mg tablet 2.5 mg PO DAILY Qty: 30 0RF No Action sumatriptan succinate 50 mg tablet 50 mg PO DAILY Patient Comments: TAKE 1 TABLET BY MOUTH ONCE AT ONSET OF HEADACHE, MAY REPEAT IN 2 HOURS levothyroxine 25 mcg tablet 25 mcg PO DAILY levothyroxine 50 mcg tablet 50 mcg PO DAILY Patient Comments: TAKE 1 TABLET BY MOUTH ONCE DAILY FOR 90 DAYS hydrochlorothiazide 25 mg tablet 25 mg PO DAILY rosuvastatin 5 mg tablet 5 mg PO DAILY Patient Comments: TAKE 1 TABLET BY MOUTH ONCE DAILY Referrals Follow up/Referrals: Jorge Soares MD [Primary Care Provider] - See instructions Activity Restrictions/Add. Instructions Additional Instructions/Restrictions: promotor group ticket sales medication and start it today check blood pressure twice daily once in the morning and once in the evening for the next couple of days and record it Follow up with Dr Soares this week Straight to ER if any worsening of symptoms, vision disturbances, worse headache of your life or any life threatening symptoms Clinical Impressions Clinical Impression: Elevated blood pressure reading Instructions Patient Instructions: Amlodipine, Hypertension (Alternative Therapy) Discharge ED Provider: Elaine Florian [facility] [place] HPI General Stated complaint: high BP Mode of Arrival: Ambulatory Source of Information: Patient Limitations: No Limitations Time Seen by Provider: 11/29/23 14:34 Description of Symptoms (Recalled from Triage Doc. by RN): PATIENT C/O ELEVATED BLOOD PRESSURE WITH A HEADACHE THAT STARTED THIS MORNING. SHE STATES THE PAIN IN THE BACK OF HER HEAD IS SQUEEZING IN NATURE HEENT Symptoms (Recalled from RN notes): Yes Resp Symptoms (Recalled from RN notes): No Skin Symptoms (Recalled from RN notes): No MS Symptoms (Recalled from RN notes): No Functional Status (Recalled from RN notes): WNL History of Present Illness Provider Complaint: Patient states that she has been having issues with her blood pressure being up States that she had a headache last night in the back of her head that felt like it was squeezing States that she took an imitrex and it helped but this morning she checked her blood pressure several times and it was elevated and she was worried when it was 166/77 earlier so she came in Related Data Home Medications Medication Instructions Recorded Confirmed hydrochlorothiazide 25 mg tablet 25 mg PO DAILY 11/29/23 11/29/23 levothyroxine 25 mcg tablet 25 mcg PO DAILY 11/29/23 11/29/23 levothyroxine 50 mcg tablet 50 mcg PO DAILY 11/29/23 11/29/23 rosuvastatin 5 mg tablet 5 mg PO DAILY 11/29/23 11/29/23 sumatriptan succinate 50 mg tablet 50 mg PO DAILY 11/29/23 11/29/23 Previous Rx's Medication Instructions Recorded amlodipine 2.5 mg tablet 2.5 mg PO DAILY #30 tabs 11/29/23 Allergies Allergy/AdvReac Type Severity Reaction Status Date / Time No Known Allergies Allergy Verified 03/10/22 15:02 Worker's Comp Is this a Worker's Comp case?: No [facility] Disclaimer: The information contained in this section may have been updated after the patient was seen, as this information can be updated by other users. Social History Smoking Status: Never smoker alcohol intake: never substance use type: denies use current occupational status: unemployed Travel in the last 8 weeks: None household members: family housing: house ROS Obtained: Yes All systems reviewed & no additional complaints except as documented and Yes Systems reviewed as appropriate & no additional complaints except as documented Constitutional Constitutional: Reports system reviewed and no additional complaints, except as documented, Reports as per HPI, Reports headache(s) (last night not today) and Denies weakness Eyes Eyes: Denies loss of vision ENT Ears, Nose, Mouth, and Throat: Reports system reviewed and no additional complaints, except as documented, Reports as per HPI, Denies disequilibrium, Denies dizziness and Reports headache(s) (last night not today) Cardiovascular Cardiovascular: Reports system reviewed and no additional complaints, except as documented, Reports as per HPI and Denies syncope Respiratory Respiratory: Reports system reviewed and no additional complaints, except as documented and Reports as per HPI Gastrointestinal Gastrointestingal: Reports system reviewed and no additional complaints, except as documented and as per HPI Musculoskeletal Musculoskeletal: Denies abnormal gait, Denies numbness and Denies tingling Neurologic Neurologic: Reports system reviewed and no additional complaints, except as documented, Reports as per HPI, Denies abnormal gait, Denies abnormal movements, Denies abnormal speech, Denies behavioral changes, Denies confusion, Denies convulsions, Denies disequilibrium, Denies dizziness, Reports headache(s) (last night not today), Denies loss of vision, Denies numbness, Denies syncope, Denies tingling and Denies weakness Physical Exam General General appearance: alert and in no apparent distress Eye Eye exam: Present normal appearance, PERRL and EOMI ENT ENT exam: Present mucous membranes moist Respiratory Respiratory exam: Present normal lung sounds bilaterally; Absent respiratory distress or wheezes Cardiovascular Cardiovascular exam: Present regular rate, normal rhythm and normal heart sounds Neurological Exam Neurological exam: Present alert, oriented X3 and normal gait Medical Decision Making Evan Inquiry Pt receiving controlled substance: No Evan was queried for this patient: No Vital Signs: 11/29/23 14:20 Temperature 98.3 F Temperature Source Oral Pulse Rate [Left Brachial] 71 Respiratory Rate 18 Blood Pressure [Left Arm] 193/96 H Blood Pressure Mean [Left Arm] 128 Blood Pressure Source [Left Arm] Manual Cuff/ Auscultation Blood Pressure Position [Left Arm] Sitting 02 Sat by Pulse Oximetry 99 Oxygen Delivery Method Room Air Medical Decision Narrative: Rechecked blood pressure 169/90 patient denies headache, denies vision changes or blurry vision, Denies weakness States she was only concerned about her blood pressure discussed transfer to the ED and she declined states that she doesn not have a forman right now and agreed to calling Physician track service person to discuss Spoke with Dr Robles about patient and informed him of elevated readings of blood pressure at home and initial reading here, Still denies headache at this t nickie and he advsised to start patient on Amlodipine 2.5mg daily and follow up in the office with Dr Soares this week and patient agreed
[2023-11-29 14:46] VITALS: BP 169/90; PULSE 71; RESP 18; TEMP 36.8; O2SAT 99
== END 2023-11-29 14:55 | disposition home or self-care (01) ==
PROVIDERS: Emergency Provider Nurse Practitioner; PCP Internal Medicine Adolescent Medicine
DX: R51.9 Headache, unspecified (principal); R03.0 Elevated blood-pressure reading, without diagnosis of hypertension
CPT/HCPCS: 99204; 99212; G0463

== ENCOUNTER 2023-11-30 15:20 | Outpatient (CLI) | payer MEDICARE, BC, SELFPAY ==
[2023-11-30 17:19] LABS: Free T4 (Free Thyroxine) 1.14 ng/dl (0.78-2.19)
[2023-11-30 17:34] LABS: Thyroid Stimulating Hormone 0.17 uIU/mL (0.465-4.68)
== END 2023-11-30 23:59 ==
PROVIDERS: PCP Internal Medicine Adolescent Medicine; Visit Provider Internal Medicine Endocrinology, Diabetes & Metabolism
DX: E03.8 Other specified hypothyroidism (principal); E06.3 Autoimmune thyroiditis
CPT/HCPCS: 36415; 84439; 84443

== ENCOUNTER 2024-02-03 09:02 | Outpatient (CLI) | payer MEDICARE, BC, SELFPAY ==
[2024-02-03 11:55] LABS: Free T4 (Free Thyroxine) 0.98 ng/dl (0.78-2.19)
[2024-02-03 12:05] LABS: Thyroid Stimulating Hormone 0.43 uIU/mL (0.465-4.68)
== END 2024-02-03 23:59 | disposition home or self-care (01) ==
LOC: LAB 09:04
PROVIDERS: PCP Internal Medicine Adolescent Medicine; Visit Provider Internal Medicine Endocrinology, Diabetes & Metabolism
DX: E03.8 Other specified hypothyroidism (principal); E06.3 Autoimmune thyroiditis
CPT/HCPCS: 36415; 84439; 84443

== ENCOUNTER 2024-03-29 10:58 | Outpatient (CLI) | payer MEDICARE, BC, SELFPAY ==
[2024-03-29 11:32] LABS: Basophils # 0.1 K/mm3 (0-0.2); Basophils % 1.4 % (0.1-2.0); Eosinophils # 0.1 K/mm3 (0.0-0.4); Eosinophils % 3.1 % (0.1-12.0); Hematocrit 42.3 % (37.0-47.0); Lymphocytes # 1.8 K/mm3 (0.7-4.5); Lymphocytes % 37.8 % (10-50); Mean Corpuscular Hemoglobin 32.8 pg (27.0-31.2); Mean Corpuscular Volume 99.6 fl (81-99); Monocytes # 0.2 K/mm3 (0.1-1.0); Monocytes % 5.1 % (1.7-9.3); Neutrophils # 2.4 K/mm3 (1.8-7.8); Neutrophils % 52.6 % (37.0-80.0); Platelet Count 184 K/mm3 (142-424); Red Blood Count 4.25 M/mm3 (4.20-5.40); Red Cell Distribution Width 13.9 % (11.5-17.5); White Blood Count 4.6 K/mm3 (4.8-10.8)
[2024-03-29 12:12] LABS: Alanine Aminotransferase 27 U/L (12-78); Albumin Level 4.1 g/dl (3.5-5.0); Albumin/Globulin Ratio 1.5 (1.1-1.8); Alkaline Phosphatase 103 U/L (38-126); Anion Gap 7.4 mEq/L (5-15); Aspartate Amino Transferase 57 U/L (14-36); Bilirubin,Total 0.9 mg/dl (0.2-1.3); Blood Urea Nitrogen 21 mg/dl (7-17); Calcium 9.2 mg/dl (8.4-10.2); Carbon Dioxide 31 mmol/L (22.0-30.0); Chloride 105 mmol/L (98-107); Chol/HDL Ratio 2.7 (1-3.5); Cholesterol 184 mg/dl (140-200); Estimated Glomerular Filt Rate 84 ml/min (>60); GFR (African American) 101 ML/MIN (>60); Globulin 2.8 g/dL (1.3-3.2); Glucose 111 mg/dl (74-100); HDL Cholesterol 69 mg/dl (40-60); Potassium 3.4 mmoL/L (3.5-5.1); Sodium 140 mmol/L (136-145); Total Protein,Serum 6.9 g/dl (6.3-8.2); Triglycerides 48 mg/dl (30-150); VLDL Cholesterol 10 mg/dL (0-40)
[2024-03-29 12:23] LABS: Direct LDL Cholesterol 78.97 mg/dL (100-129)
[2024-03-29 12:29] LABS: 25-OH Vitamin D, Total 70.8 ng/mL (30-100)
[2024-03-29 12:32] LABS: Free Thyroxine Index 2.3 ug/dL (5.93-13.13); T4 (Thyroxine) 7.1 ug/dl (5.53-11.0); Triiodothryronine (T3) Uptake 32 % (23.5-40.5)
[2024-03-29 12:46] LABS: Thyroid Stimulating Hormone 0.26 uIU/mL (0.465-4.68)
== END 2024-03-29 23:59 | disposition home or self-care (01) ==
LOC: LAB 11:01
PROVIDERS: PCP Internal Medicine Adolescent Medicine; Visit Provider Internal Medicine Adolescent Medicine
DX: E78.2 Mixed hyperlipidemia (principal); E55.9 Vitamin D deficiency, unspecified; E89.0 Postprocedural hypothyroidism
CPT/HCPCS: 36415; 80053; 80061; 82306; 84436; 84443; 84479; 85025

== ENCOUNTER 2024-05-16 11:05 | Outpatient (CLI) | payer MEDICARE, BC, SELFPAY ==
[2024-05-16 12:24] LABS: Free T4 (Free Thyroxine) 0.95 ng/dl (0.78-2.19)
[2024-05-16 12:37] LABS: Thyroid Stimulating Hormone 0.29 uIU/mL (0.465-4.68)
== END 2024-05-16 23:59 | disposition home or self-care (01) ==
LOC: LAB 11:08
PROVIDERS: PCP Internal Medicine Adolescent Medicine; Visit Provider Internal Medicine Endocrinology, Diabetes & Metabolism
DX: E03.8 Other specified hypothyroidism (principal); E06.3 Autoimmune thyroiditis
CPT/HCPCS: 36415; 84439; 84443

== ENCOUNTER 2024-07-27 15:11 | Outpatient (CLI) | payer MEDICARE, BC, SELFPAY ==
[2024-07-27 16:04] LABS: Alanine Aminotransferase 16 U/L (12-78); Albumin Level 4.4 g/dl (3.5-5.0); Albumin/Globulin Ratio 1.9 (1.1-1.8); Alkaline Phosphatase 105 U/L (38-126); Anion Gap 7.1 mEq/L (5-15); Aspartate Amino Transferase 38 U/L (14-36); Bilirubin,Total 1.1 mg/dl (0.2-1.3); Blood Urea Nitrogen 14 mg/dl (7-17); Calcium 9.3 mg/dl (8.4-10.2); Carbon Dioxide 31 mmol/L (22.0-30.0); Chloride 104 mmol/L (98-107); Estimated Glomerular Filt Rate 72 ml/min (>60); GFR (African American) 87 ML/MIN (>60); Globulin 2.3 g/dL (1.3-3.2); Glucose 120 mg/dl (74-100); Potassium 3.1 mmoL/L (3.5-5.1); Sodium 139 mmol/L (136-145); Total Protein,Serum 6.7 g/dl (6.3-8.2)
[2024-07-27 16:17] LABS: Intact Parathyroid Hormone 47.3 pg/mL (7.5-53.5)
[2024-07-27 16:20] LABS: Free T4 (Free Thyroxine) 0.94 ng/dl (0.78-2.19)
[2024-07-27 16:21] LABS: T4 (Thyroxine) 7.8 ug/dl (5.53-11.0)
[2024-07-27 16:22] LABS: 25-OH Vitamin D, Total 54.6 ng/mL (30-100)
== END 2024-07-27 23:59 | disposition home or self-care (01) ==
LOC: LAB 15:13
PROVIDERS: PCP Internal Medicine Adolescent Medicine; Visit Provider Internal Medicine Endocrinology, Diabetes & Metabolism
DX: E06.3 Autoimmune thyroiditis (principal); M81.0 Age-related osteoporosis without current pathological fracture
CPT/HCPCS: 36415; 80053; 82306; 83970; 84436; 84439; 84443

== ENCOUNTER 2025-04-13 11:31 | Outpatient (CLI) | payer MEDICARE, BC, SELFPAY ==
--- OUTSIDE RECORDS SUMMARY | 2024-11-30 15:35 | XMS_ITS | Encounter Summary ---
[facility] [address] [place] [address] Care Team Providers Care Administrative Assistant Receptionist Name Role Phone Jorge Soares MD Primary Care Provider [phone] Reason for Visit * Diagnostic Imaging (Routine) - Closed Specialty Diagnoses / Procedures Referred By Kd blackmon Referred To Contact Radiology Diagnoses Multinodular goiter Procedures US Thyroid Kim Galo DO [address] [place] [address] Phone: tel: fax: Referral ID Status Reason Start Date Expiration Date Visits Re quested Visits Authorized [id number] Closed 11/30/2024 03/01/2026 1 1 Encounter Details Date Type Department Care Team (Late Contact Info) Description 11/30/2024 3:35 PM EDT Hospital Encounter [facility] [address] [place] [phone] Social History Tobacco Use Types Packs/Day Years Used Date Smoking Tobacco: Never Passive Smoke Exposure: Never Smokeless Tobacco: Never Alcohol Use Standard Drinks/Week Comments No 0 (1 standard drink = 0.6 oz pur e alcohol) Comments No Sex and Gender Information Value Date Recorded Sex Assigned at Female 11/26/2024 1:41 AM EDT Legal Sex Female 10:07 AM EDT Gender Identity Not on file Sexual Orientation Not on file documented as of this encounter Plan of Treatment Upcoming Encounters Date Type Department Care Team (Late Contact Info) Description 05/01/2025 2:10 PM EDT Office Visit [facility] [address] [place] [phone] Danni Daniels MD [address] [facility] [address] [place] [address] 12/06/2025 3:15 PM EDT Office Visit [facility] [address] [place] [phone] Kim Galo DO [address] [place] [address] documented as of this encounter Procedures Procedure Name Priority Date/Time Associated Diagnosis Comments US THYROID Routine 11/30/2024 3:35 PM EDT Multinodular goiter documented in this encounter Results * US Thyroid (11/30/2024 3:35 PM EDT) Narrative SYSTEMGENERATED, DOCUMENTATION - 11/30/2024 3:35 PM EDT Please see performing physician's note for result. us Kim Galo DO IMG US ORDERABLES Final R esult documented in this encounter Visit Diagnoses Not on filedocumented in this encounter Care Teams Administrative Assistant Receptionist Relationship Specialty Start Date End Date Jorge Soares MD [facility] [address] [place] [address] PCP - General Adolescent Medicine 07/28/18 documented as of this encounter
--- OUTSIDE RECORDS SUMMARY | 2025-02-21 13:15 | XMS_ITS | Encounter Summary ---
Author Organization [employer] ([place], [place], [place], [place]) Address [address] [place] [address] Care Team Providers Care Machine Lay Out Worker Name Role Phone Jorge Soares MD Primary Care Provider [phone] Danni Daniels MD Unavailable [phone] Reason for Referral * Mammography (Routine) - Closed Specialty Diagnoses / Procedures Referred By Kd blackmon Referred To Contact Radiology Diagnoses Visit for screening mammogram Procedures MM digital mammo screen with federico bilateral Jorge Soares MD [address] [place] [address] Phone: tel: fax: [address] [place] [phone] Phone: tel: fax: Referral ID Status Reason Start Date Expiration Date Visits Re quested Visits Authorized [id number] Closed 02/21/2025 02/21/2026 1 1 * Mammography (Routine) - Closed Specialty Diagnoses / Procedures Referred By Kd blackmon Referred To Contact Radiology Diagnoses Visit for screening mammogram Procedures MM digital mammo screen with federico bilateral Jorge Soares MD [address] [facility] [address] [place] [address] Phone: tel: fax: [address] [place] [address] Phone: tel: fax: Referral ID Status Reason Start Date Expiration Date Visits Re quested Visits Authorized [id number] Closed 02/21/2025 02/21/2026 1 1 Reason for Visit * Mammography (Routine) - Closed Specialty Diagnoses / Procedures Referred By Contac t Referred To Contact Radiology Diagnoses Visit for screening mammogram Procedures MM digital mammo screen with federico bilateral Jorge Soares MD [address] [place] [address] Phone: tel: fax: [address] [place] [address] Phone: tel: fax: Referral ID Status Reason Start Date Expiration Date Visits Re quested Visits Authorized [id number] Closed 02/21/2025 02/21/2026 1 1 Encounter Details Date Type Department Care Team (Latest Contact Info) Description 02/21/2025 1:15 PM EDT - 02/21/2025 11:59 PM EDT Hospital Encounter [address] [place] [phone] Visit for screening mammogram (Primary Dx) Discharge Disposition: Home or Self Care Social History Tobacco Use Types Packs/Day Years Used Date Smoking Tobacco: Never Assessed Employment Answer Date Recorded Help finding and keeping a job Not on file 0 09/04/2023 Family and Community Support Answer Lamont e Recorded Help with Day to Day Activities Not on file 09/04/2023 Feeling Lonely or Isolated Not on file 09/04 Educational Attainment Answer Date Alberto rded Speak language other than Nigerien at home Not on file 09/04/2023 Want help with school or training Not on file 09/04/2023 Substance Use Answer Date Recorded Used prescription meds for non-medical reasons N ot on file 09/04/2023 Used illegal drugs past 12 months Not on file 09/04/2023 Comments No Sex and Gender Information Value Date Recorded Sex Assigned at Female 02/11/2022 4:46 PM CDT Legal Sex Female 4:46 PM CDT Gender Identity Female 02/11/2022 4:46 PM CDT Sexual Orientation Not on file documented as of this encounter Last Filed Vital Signs Vital Sign Reading Time Taken Comments Blood Pressure - - Pulse - - Temperature - - Respiratory Rate - - Oxygen Saturation - - Inhaled Oxygen Concentration - - Weight 61.2 kg (135 lb) 02/21/2025 1:36 PM EDT Height 160 cm (5' 3 ) 02/21/2025 1:36 PM EDT Body Mass Index 23.91 02/21/2025 1:36 PM EDT documented in this encounter Plan of Treatment Upcoming Encounters Date Type Department Care Team (Late st Contact Info) Description 02/27/2026 1:15 PM EDT Appointment [address] [address] documented as of this encounter Procedures Procedure Name Priority Date/Time Associated Diagnosis Comments MM DIGITAL MAMMO SCREEN WITH FEDERICO BILATERAL Routine 02/21/2025 1:54 PM EDT Visit for screening mammogram documented in this encounter Results * MM digital mammo screen with federico bilateral (02/21/2025 1:54 PM EDT) Anatomical Region Laterality Modality Breast Bilateral Mammography 02/21/2025 6:54 PM EDT Impressions 02/21/2025 6:57 PM EDT No mammographic evidence of malignancy. BI-RADS CATEGORY 2: BENIGN FINDING(S). RECOMMENDED FOLLOW-UP: Annual mammography. A letter including results and recommendations was sent to the patient. Density notification was included for patients with pattern 3 or 4 breast tissue. Patient information was entered into a reminder system with a target due date for the next mammogram. NOTES: Mammography does not detect approximately 10-15% of breast cancers. Physical examination of the breasts by a physician and regular monthly breast self examinations are integral parts of breast cancer screening. A normal mammogram does not exclude breast cancer if there is an abnormal finding on physical examination. When clinically indicated, a biopsy should not be postponed because of a normal mammogram report. Narrative 02/21/2025 6:57 PM EDT BILATERAL SCREENING DIGITAL MAMMOGRAPHY CLINICAL INDICATION: Routine screening. TECHNIQUE: Bilateral CC and MLO views were obtained with digital acquisitions with 3D tomosynthesis. The study was read with the assistance of CAD. COMPARISON: Exams dating back to 2019. DENSITY: The breasts are heterogeneously dense, which may obscure small masses. FINDINGS: There are no spiculated masses, areas of distortion or suspicious calcifications. Partially obscured masses are seen in the left upper outer quadrant. There are benign calcifications noted. us Jorge Soares MD IMG MAMMOGRAPHY ORDERABLES F inal Result documented in this encounter Visit Diagnoses Diagnosis Visit for screening mammogram- Primary documented in this encounter Care Teams Machine Lay Out Worker Relationship Specialty Start Date End Date Jorge Soares MD [address] [place] [address] PCP - General Adolescent Medicine 02/12/23 Danni Daniels MD [address] [facility] [address] [place] [address] 02/21/25 documented as of this encounter
--- OUTSIDE RECORDS SUMMARY | 2025-04-13 11:35 | XMS_ITS | Clinical Summary ---
Author Organization [employer] ([place], [place], [place], [place]) Address [address] [place] [address] Care Team Providers Care Cab Driver Name Role Phone Jorge Soares MD Primary Care Provider [phone] Danni Daniels MD Unavailable [phone] Encounters Date Type Department Care Team Description 02/21/2025 1:15 PM EDT - 02/21/2025 11:59 PM EDT Hospital Encounter [facility] Breast [address] [address] Visit for screening mammogram (Primary Dx) Discharge Disposition: Home or Self Care 02/21/2025 Outside Orders [address] [address] Jorge Soares MD Visit for screening mammogram (Primary Dx) from Last 3 Months Family History Medical History Relation Name Comments Breast cancer Maternal Grandmother Relation Name Status Comments Maternal Grandmother Social History Tobacco Use Types Packs/Day Years [...] Date Alberto rded Speak language other than French at home Not on file 09/04/2023 Want [...] PM CDT Sexual Orientation Not on file Last Filed Vital Signs Vital Sign Reading Time Taken Comments Blood Pressure - - Pulse - - Temperature - - Respiratory Rate - - Oxygen Saturation - - Inhaled Oxygen Concentration - - Weight 61.2 kg (135 lb) 02/21/2025 1:36 PM EDT Height 160 cm (5' 3 ) 02/21/2025 1:36 PM EDT Body Mass Index 23.91 02/21/2025 1:36 PM EDT Plan of Treatment Upcoming Encounters Date Type Department Care Team (Late st Contact Info) Description 02/27/2026 1:15 PM EDT Appointment [address] [address] Health Maintenance Due Date Last Done Comments CT Colonography 1957 Colonoscopy 1957 Colorectal Cancer Screening 1957 DXA SCAN 1957 FOBT/FIT 1957 Fit-DNA (Cologuard) 1957 Sigmoidoscopy 1957 Depression Screening (12+) 1969 Tobacco Cessation Counseling and Screening (12+) 1969 Hepatitis C Screening 11/19/1975 Medicare Initial AWV [id number] 11/17/2023 COVID-19 VACCINE (3 - 2023-2 5 season) 2024 07/26/2021, 10/24/2020 Shingles Vaccine (Zoster) (2 of 2) 05/25/20242023 Falls Risk Screening 08/17/2024 Influenza Vaccine (#1) 2025 06/22/2023, 2019 Breast Cancer Screening 02/21/2027 02/22/20 25, 02/16/2024, 02/12/2023, Additional history exists Respiratory Syncytial Virus (RSV) Adult or (1 - 1-dose 75+ series) 2032 DTAP/TDAP/TD VACCINES (3 - T d or Tdap) 03/30/2034 03/30/2024, 10/21/1996 Pneumococcal 50+ years Completed 12/09/2022 Procedures Procedure Name Priority Date/Time Associated Diagnosis Comments MM DIGITAL MAMMO SCREEN WITH FEDERICO BILATERAL Routine 02/21/2025 1:54 PM EDT Visit for screening mammogram from Last 3 Months Results * MM digital mammo screen with [...] outer quadrant. There are benign calcifications noted. Jorge Soares MD IMG MAMMOGRAPHY ORDERABLES F inal Result from Last 3 Months Insurance MEDICARE PART A B SUPP Care Teams Cab Driver Relationship Specialty Start Date End Date Jorge Soares MD [address] [place] [address] PCP - General Adolescent Medicine 02/12/23 Danni Daniels MD [address] [place] [address] 02/21/25
--- OUTSIDE RECORDS SUMMARY | 2025-04-13 11:35 | XMS_ITS | Encounter Summary ---
Author Organization [employer] ([place], [place], [place], [place]) Address [address] [place] [address] Care Team Providers Care Booth Manager Name Role Phone Jorge Soares MD Primary Care Provider [phone] Mimi Wilkerson APRN Unavailable [phone] Danni Daniels MD Unavailable [phone] Reason for Referral * Mammography (Routine) - Closed Specialty Diagnoses / Procedures Referred By Contac t Referred To Contact Diagnoses Screening mammogram for high-risk patient Procedures MM digital mammo screen with nicole bilateral Mimi Wilkerson APRN [address] [place] [address] Phone: tel: fax: Referral ID Status Reason Start Date Expiration Date Visits Re quested Visits Authorized [id number] Closed 09/02/2022 03/01/2023 1 1 Encounter Details Date Type Department Care Team (Late st Contact Info) Description 09/02/2022 Outside Orders [facility] Central Scheduling [address] [place] [address] Mimi Wilkerson APRN [address] [place] [address] Screening mammogram for high-risk patient (Primary Dx) Social History Tobacco Use Types Packs/Day Years Used Date Smoking Tobacco: Never Assessed Comments Unknown Sex and Gender Information Value Date Recorded Sex Assigned at Female 02/11/2022 4:46 PM CDT Legal Sex Female 4:46 PM CDT Gender Identity Female 02/11/2022 4:46 PM CDT Sexual Orientation Not on file documented as of this encounter Plan of Treatment Upcoming Encounters Date Type Department Care Team (Late st Contact Info) Description 02/27/2026 1:15 PM EDT Appointment [address] [place] [phone] documented as of this encounter Results * MM digital mammo screen with nicole bilateral (02/12/2023 1:15 PM EDT) Anatomical Region Laterality Modality Breast Bilateral Mammography 02/12/2023 3:42 PM EDT Impressions 02/12/2023 3:47 PM EDT FINAL IMPRESSION: ACR BI-RADS 2: Benign findings. RECOMMENDATIONS: Routine annual screening mammography. A letter including results and recommendations was sent to the patient. Density notification was provided to patients with type 3 or 4 breast tissue pattern. Patient information entered into a reminder system with a target due date for the next mammogram. At our facility, a new [place] marker is positioned over a visible skin lesion and a linear marker is used to indicate a scar. A triangular marker is placed on a self reported palpable finding. Note: Mammography does not detect approximately 10-15% of breast cancers. An annual clinical breast exam by the patient's breast care physician and regular monthly self breast exams by the patient are integral parts of breast cancer screening, in addition to annual mammography. A normal mammogram does not completely exclude the presence of breast cancer, especially if there is an abnormal finding on physical exam. When clinically indicated, a biopsy should not be deferred because of a normal mammogram report. cc: D Narrative 02/12/2023 3:47 PM EDT PROCEDURE: Bilateral digital screening mammogram with tomosynthesis. REASON FOR EXAM: Routine screening. FAMILY HISTORY: There is weak family history of breast cancer. COMPARISON STUDY: [facility] [phone] FINDINGS: Craniocaudal and mediolateral oblique images of both breasts were obtained in 2D, C-view, and 3D modes. The breast tissue is heterogeneously dense, which may obscure small masses. There has been no significant interval change. Bilateral round calcifications are present. The right breast is otherwise unremarkable. Two low density masses, each measuring approximately 8 mm, are again visualized in the left upper outer quadrant. There is no evidence of a spiculated mass, architectural distortion, or suspicious calcifications. This examination was reviewed with the benefit of computer-aided detection (CAD). [facility] IMG MAMMOGRAPHY ORDERABLES Fi nal Result documented in this encounter Visit Diagnoses Diagnosis Screening mammogram for high-risk patient- Primary Screening mammogram for high-risk patient documented in this encounter Care Teams Booth Manager Relationship Specialty Start Date End Date Jorge Soares MD [address] [place] [address] PCP - General Adolescent Medicine 02/12/23 Mimi Wilkerson APRN [address] [place] [address] Nurse Practitioner Women's Health 02/12/23 02/20/25 Danni Daniels MD [address] [place], [place] [address] 02/21/25 documented as of this encounter
--- OUTSIDE RECORDS SUMMARY | 2025-04-13 11:35 | XMS_ITS | Clinical Summary ---
Author Organization [facility] Address [address] [place] [address] Care Team Providers Care Auto Body Straightener Name Role Phone Jorge Soares MD Primary Care Provider [phone] Allergies No known active allergies Medications rosuvastatin (Crestor) 5 MG tablet Take 1 tablet (5 mg) by mouth 1 (one) time each day. 2 Active omega-3 (Fish Oil) 1000 MG capsule Take 1 capsule (1,000 mg) by mouth 1 (one) time each day. Active Euthyrox 75 MCG tablet Take 1 tablet (75 mcg) by mouth 1 (one) time each day. 2 Active hydroCHLOROthia zide (HYDRODiuril) 12.5 MG tablet Take 1 tablet (12.5 mg) by mouth 1 (one) time each day. 2 Active calcium citrate-vitamin D 250-100 MG-UNIT tablet Take 1 tablet by mouth 1 (one) time each day. Active Multiple Vitamins-Calciu m (VIACTIV MULTI-VITAMIN PO) CHEW AND SWALLOW 1 TABLET DAILY. 5 Active SUMAtriptan (Imitrex) 50 MG tablet Take 1 tablet (50 mg) by mouth 1 (one) time if needed for migraine. May repeat dose once in 2 hours if no relief. Do not exceed 2 doses in 24 hours. Active ibuprofen 400 MG tablet Take 1 tablet (400 mg total) by mouth every 6 (six) hours if needed for moderate pain. 50 tablet 2 Active oxyCODONE (Roxicodone) 5 MG immediate release tablet Take 1 tablet (5 mg total) by mouth every 6 (six) hours if needed for severe pain. 20 tablet 2 Active Additional Information Patient not taking.Reported on 09/23/2022 traMADol (Ultram) 50 MG tablet Take 1 tablet (50 mg total) by mouth every 8 (eight) hours if needed for severe pain. 25 tablet 2 Active Additional Information Patient not taking.Reported on 09/23/2022 methocarbamol (Robaxin) 750 MG tablet Take 1 tablet (750 mg total) by mouth 4 (four) times a day for 10 days. 50 tablet 2 Active acetaminophen (Tylenol) 500 MG tablet Take 2 tablets (1,000 mg total) by mouth every 6 (six) hours if needed for pain. 100 tablet 2 Active Additional Information Patient not taking.Reported on 04/28/2023 aspirin 81 MG EC tablet Take 1 tablet (81 mg total) by mouth 2 (two) times a day. 60 tablet 2 Active gabapentin (Neurontin) 100 MG capsuleIndicati ons:Closed displaced fracture of third metatarsal bone of right foot, initial encounter Take 1 capsule (100 mg total) by mouth 3 (three) times a day. 42 capsule 2 Active Additional Information Patient not taking.Reported on 08/19/2022 sertraline (Zoloft) 50 MG tablet Take 1 tablet (50 mg) by mouth 1 (one) time each day. 3 Active Active Problems Problem Noted Date Diagnosed Date Acquired hallux valgus of left foot 04/28/2023 Contracture of joint of right foot 04/28/2023 Hallux varus (acquired), right foot 04/28/2023 Closed displaced fracture of third metatarsal bone of right foot 03/14/2022 Overview (03/14/2022): Added automatically from request for surgery [id number] Closed displaced fracture of fourth metatarsal bone of right foot 03/14/2022 Overview (03/14/2022): Added automatically from request for surgery [id number] Bunion of great toe of right foot 03/14/2022 Overview (03/14/2022): Added automatically from request for surgery [id number] Family History Medical History Relation Name Comments Alzheimer's disease Father Hyperlipidemia Father Heart attack Mother Hyperlipidemia Mother Relation Name Status Comments Father Mother Social History Tobacco Use Types Packs/Day Years Used Date Smoking Tobacco: Never Smokeless Tobacco: Never Tobacco Cessation:Counseling Given: Not Answered Alcohol Use Standard Drinks/Week Comments No 0 (1 standard drink = 0.6 oz pur e alcohol) PHQ-2 Answer Date Recorded Patient Health Questionnaire-2 Score 0 04/28/2023 PHQ-2A Answer Date Recorded Patient Health Questionnaire-2 Score 0 04/28/2023 Comments No Sex and Gender Information Value Date Recorded Sex Assigned at Not on file Legal Sex Female 8:43 PM EDT Gender Identity Not on file Sexual Orientation Not on file Last Filed Vital Signs Vital Sign Reading Time Taken Comments Blood Pressure 158/94 04/28/2023 1:46 PM EDT Pulse 62 04/28/2023 1:46 PM EDT Temperature 36.9 C (98.4 F) 04/28/2023 1:46 PM EDT Respiratory Rate 17 03/18/2022 3:17 AM EDT Oxygen Saturation 99% 04/28/2023 1:46 PM EDT Inhaled Oxygen Concentration - - Weight 59.9 kg (132 lb) 04/28/2023 1:46 PM EDT Height 160 cm (5' 3 ) 04/28/2023 1:46 PM EDT Body Mass Index 23.38 04/28/2023 1:46 PM EDT Plan of Treatment Upcoming Encounters Date Type Department Care Team (Late st Contact Info) Description 11/22/2025 3:30 PM EDT Ovarian Cancer Screening [facility] [address] [facility], [address] [place] [address] Health Maintenance Due Date Last Done Comments [facility]-Hepatitis C Screening 1955 [facility]-Medicare Annual Wellness (AWV) 1955 [facility]-/Child/Adol SDOH Screenings 1955 [facility]- SDOH Screenings 11/19/1975 [facility]-Adult SDOH Screenings 11/19/1975 CT Colonography 2002 Colonoscopy 2002 FIT-DNA 2002 FIT 2002 FOBT 2002 Sigmoidoscopy 2002 [facility]-Colorectal Cancer Screening 2002 [facility]-RSV Vaccine: 60+ Years or (1 - Risk 60-74 years 1-dose series) 2017 [id number] Vaccine (3 - season) 2024 07/26/2021, 10/24/2020 [facility]-Depression Screening 04/28/2024 04/28/2023 [facility]-Influenza Vaccine (#1) 04/17/202507/27, 06/22/2023, 06/16/2022, Additional history exists [facility]-Breast Cancer Screening 02/15/2026 0709/2023, 02/16/2024, 02/12/2023, Additional history exists [facility]-Bone Density Scan 05/27/2026 05/27/2024 , 03/06/2020, 07/28/2016 [facility]-DTaP,Tdap,and Td Vaccines (2 - Td or Tdap) 03/30/2034 03/30/2024, 10/21/1996 [facility]-HPV/Cotest Discontinued 05/30/2008, 12/31/2004 [facility]-Hepatitis A Vaccines Aged Out 02/28/2019, 08/17 No longer eligible based on patient's age to complete this topic [facility]-Pneumococcal Vaccine: 50+ Years Completed 12/09/2022 [facility]-Cervical Cancer Screening Discontinued [facility]-Pap Smear Discontinued 04/09/2023, 05/17, 12/31/2004 [facility]-Zoster Vaccines Completed 07/27/2024, HPV Vaccines Aged Out No longer eligi ble based on patient's age to complete this topic [facility]-HIB Vaccines Aged Out No longer e ligible based on patient's age to complete this topic [facility]-IPV Vaccines Aged Out No longer e ligible based on patient's age to complete this topic [facility]-Rotavirus Vaccines Aged Out No lo nger eligible based on patient's age to complete this topic Medical Devices Implanted Type Area Swimming Pool Servicer Device Identifier Shelf Expiration Date Model / Serial / Lot Screw 3.5mm Minimonster Domingo Shrtthrd Head 42mm - [employer]one - [id number] Implanted:Qty: 1 on 03/17/2022 at [facility] Wire Right: Foot [id number] 2S / NONE / Graft Span Sm 58mm Grafts 4hole Comp R - [employer] - [id number] Implanted:Qty: 1 on 03/17/2022 at [facility] Wire Right: [employer]-[id number] 02 / NONE / Screw 2.7mm R3con Locking Plate 16mm - [employer]one - [id number] Implanted:Qty: 1 on 03/17/2022 at [facility] Wire Right: [employer]-[id number] 16 / NONE / Screw 2.7mm R3con Locking Plate 15mm - [employer] - [id number] Implanted:Qty: 1 on 03/17/2022 at [facility] Wire Right: [employer]-[id number] 15 / NONE / Screw 3.5mm R3con Nonlocking Plate 14mm - [employer]one - [id number] Implanted:Qty: 1 on 03/17/2022 at [facility] Wire Right: [employer]-[id number] 14 / NONE / Screw 3.5mm R3con Nonlocking Plate 16mm - [employer] - [id number] Implanted:Qty: 1 on 03/17/2022 at [facility] Wire Right: [employer]-[id number] 16 / NONE / Screw 3.5mm R3con Nonlocking Plate 26mm - [employer]one - [id number] Implanted:Qty: 1 on 03/17/2022 at [facility] Wire Right: Foot [employer]-[id number] 26 / NONE / Screw 2.7mm R3con Locking Plate 26mm - [employer]one - [id number] Implanted:Qty: 1 on 03/17/2022 at [facility] Wire Right: Foot [employer]-[id number] 26 / NONE / Procedures Procedure Name Priority Date/Time Associated Diagnosis Comments CYTO DATA CONVERSION Routine 05/30/2008 12:00 AM EDT from Last 3 Months or Most Recently Relevant to Health Maintenance Results * Cytology (05/30/2008 12:00 AM EDT) Thyroid fine needle aspirate specimen (specimen) 05/30/2008 05/30/2008 7:16 PM EDT Narrative SUNQUEST - 05/31/2008 4:10 PM EDT [facility] MR #: [id number] [facility] [address]GEL ELSA [place], [place] [address] 1955 (Age: 52) FW Collect Date: 05/30/2008 00:00 Receipt Date: 05/30/2008 19:16 Page 1 DEPARTMENT OF PATHOLOGY AND LABORATORY MEDICINE CYTOPATHOLOGY REPORT Email: [email or web address] [phone] ATTENDING MD/Practitioner: Chris Adames MD. Service: END Location: [facility] Reported: 05/31/2008 16:10 Collected: 05/30/2008 00:00 DIAGNOSIS ULTRASOUND GUIDED FNA LEFT THYROID: ABUNDANT COLLOID, NUMEROUS MACROPHAGES, AND FOLLICULAR GROUPS WITH SOME HURTHLE CELL CHANGES. CYTOLOGIC FEATURES MOST CONSISTENT WITH GOITROUS NODULE. Electronically Signed Out Jesse Olea MD PROCEDURES/ADDENDA GROSS DESCRIPTION: 20 ml's of tinted fluid. CLINICAL INFORMATION: CLINICAL DIAGNOSIS 2.7 left hypoechoic nodule peripheral vascularly and regular mardins. Endo / US FNA performed by: Dr. Bhardwaj / Dr. Adames SPECIMEN DESCRIPTION: A: FNA LEFT THYROID, ULTRASOUND GUIDED THIN PREP PROCESS CELLULAR ENHANCEMENT, DIFF-QUIK x 6, PAP STAIN x 6 ICD: 240.9 GOITER NOS F: A; [id number] ASP INTER SNOMED CODES: A; [id number] A resident has participated in this service. A pathologist has performed and is responsible for the reported pathologic evaluation. Benedict Adames MD LAB PATHOLOGY ORDERABLES Final R esult SUNQUEST from Last 3 Months or Most Recently Relevant to Health Maintenance [place] [address] ANTHEM Care Teams Auto Body Straightener Relationship Specialty Start Date End Date Jorge Soares MD [address] [place] [address] [place] [address] PCP - General Internal Medicine 03/17/22
--- OUTSIDE RECORDS SUMMARY | 2025-04-13 11:35 | XMS_ITS | Clinical Summary ---
Author Organization [facility] Address [address] [place] [address] Care Team Providers Care Clinical Science Liaison Name Role Phone Jorge Soares MD Primary Care Provider [phone] Allergies No known active allergies Medications Multiple Vitamins-Minerals (MULTIVITAMIN ADULT PO) Take 1 tablet by mouth Daily. Active Calcium Citrate-Vitamin D (CALCIUM + D PO) Take 1 tablet by mouth Daily. Active Leicester-3 Fatty Acids (Fish Oil) 1200 MG capsule delayed-release capsule Take 1,000 mg by mouth Daily With Breakfast. Active SUMAtriptan (IMITREX) 50 MG tablet TAKE 1 TABLET AT THE ONSET OF HEADACHE MAY REPEAT IN 2 HOURS FOR 30 DAYS 0 Active rosuvastatin (CRESTOR) 5 MG tablet Take 1 tablet by mouth Daily. 2 Active fluticasone (FLONASE) 50 MCG/ACT nasal spray Administer 2 sprays into the nostril(s) as directed by provider Daily. 3 Active hydroCHLOROthiazi de 25 MG tablet 4 Active aspirin-acetamino phen-caffeine (EXCEDRIN MIGRAINE) 250-250-65 MG per tablet Take 1 tablet by mouth Every 6 (Six) Hours As Needed for Headache. Active sertraline (ZOLOFT) 25 MG tablet Take 1 tablet by mouth Daily. 4 Active omeprazole (priLOSEC) 20 MG capsule Take 1 capsule by mouth Daily. 4 Active ipratropium (ATROVENT) 0.03 % nasal spray 5 Active alendronate (Fosamax) 70 MG tabletIndications :Osteoporosis without current pathological fracture, unspecified osteoporosis type Take 1 tablet by mouth Every 7 (Seven) Days. 14 tablet 3 5 12/01/19 26 Active Active Problems Problem Noted Date Diagnosed Date Vaginal atrophy 07/21/2016 Menopause Hypertension Hyperlipidemia History of migraine headaches Goiter Fibrocystic breast changes, bilateral Immunizations Immunization Administration Dates Next Due 31-influenza Vac Quardvalent Preservativ 019 COVID-19 (LOUIE) 10/24/2020 Flublok 18+yrs 06/12/2020 Fluzone High-Dose 65+YRS 06/22/2023 Hepatitis A 02/28/2019,08/27/2018 Pneumococcal Conjugate 20-Valent (PCV20) 023 Shingrix 03/30/2024 Td (TDVAX) 10/21/1996 Tdap 03/30/2024 Family History Medical History Relation Name Comments Alzheimer's disease Father Matt Hypertension Father Matt Heart attack Mother Kimberly Hypertension Mother Kimberly Pulmonary embolism Mother Kimberly Relation Name Status Comments Father Matt Mother Kimberly Social History Tobacco Use Types Packs/Day Years [...] Sign Reading Time Taken Comments Blood Pressure 122/76 11/30/2024 3:00 PM EDT Pulse 70 11/30/2024 3:00 PM EDT Temperature - - Respiratory Rate 18 06/02/2024 2:54 PM EDT Oxygen Saturation 98% 11/30/2024 3:00 PM EDT Inhaled Oxygen Concentration - - Weight 62.6 kg (138 lb) 11/30/2024 3:00 PM EDT Height 172.7 cm (5' 8 ) 11/30/2024 3:00 PM EDT Body Mass Index 20.98 11/30/2024 3:00 PM EDT Plan of Treatment Upcoming Encounters Date Type Department Care Team (Late st Contact Info) Description 05/01/2025 2:10 PM EDT Office Visit [facility] GYNECOLOGY [address] [place] [phone] Danni Daniels MD [address] [place] [address] 12/06/2025 3:15 PM EDT Office Visit [facility] ENDOCRINOLOGY [address] [place] [phone] Kim Galo, DO [address] [place] [address] Health Maintenance Due Date Last Done Comments LIPID PANEL 1957 COLOGUARD 2002 COLON CANCER SCREENING 5 YEA R SIGMOIDOSCOPY 2002 COLONOSCOPY 2002 COLORECTAL CANCER SCREENING 2002 CT COLONOGRAPHY 2002 FECAL OCCULT BLOOD TEST 2002 FIT Testing (1 year) 2002 ANNUAL WELLNESS VISIT 07/17/2016 HEPATITIS C SCREENING 07/17/2016 COVID-19 Vaccine (2023- 5 season) 2024 07/26/2021, 10/24/2020 INFLUENZA VACCINE 05/17/2025 07/27/2024, , 06/16/2022, Additional history exists MAMMOGRAM 02/15/2026 02/16/2024, 07/0 09/2023, 02/12/2023, Additional history exists DXA SCAN 05/27/2026 05/27/2024, 02/15, 03/06/2020, Additional history exists TDAP/TD VACCINES (3 - Td or Tdap) 03/30/2034 024, 10/21/1996 Pneumococcal Vaccine 50+ Completed 12/09/2022 ZOSTER VACCINE Completed 07/27/2024, 03/30/2024 Procedures Procedure Name Priority Date/Time Associated Diagnosis Comments DEXA BONE DENSITY AXIAL Routine 05/27/2024 11:30 AM EDT Postmenopausal SCANNED - MAMMO 02/12/2023 from Last 3 Months or Most Recently Relevant to Health Maintenance Results * DEXA Bone Density Axial (05/27/2024 11:30 AM EDT) Anatomical Region Laterality Modality Wrist, Hip, L-spine N/A Bone Density 05/30/2024 10:4 8 AM EDT Impressions 05/30/2024 3:57 PM EDT Osteoporosis of the right femoral neck. Osteopenia of the left femoral neck, total hips bilaterally. The ten year fracture risk assessment was not calculated because some T-scores were at or below -2.5. All the treatment decisions require clinical judgment and consideration of individual patient factors, including patient preferences, co-morbidities, previous drug use, risk factors not captured in the FRAX model (frailty, falls, vitamin D deficiency, increased bone turnover, interval significant decline in bone density) and possible under or over estimation of fracture risk by FRAX. Approaches to reduce osteoporosis related fracture risk include optimizing calcium and vitamin D status, appropriate weight bearing exercises and fall-prevention measurements. The National Osteoporosis Foundation recommends (http://www.nof.org/hcp/practice/drweecad-asx-ifvafcnw-guidelines/clinicians-rob de) that FDA-approved medical therapies be considered in postmenopausal women and men aged equal or greater than 50 years with : a) hip or vertebral (clinical or morphometric) fracture; b) T-score of -2.5 or less at the spine or hip; c) Ten-year fracture probability by FRAX of greater than 3% for hip fracture of greater than 20% for major osteoporotic fracture. Secondary causes of bone loss should be evaluated if clinically indicated since the etiology of low BMD cannot be determined by BMD measurement alone. FOLLOWUP: Consider repeating the study in 2-3 years to reassess the patient's status or sooner if there is some new clinical indication. INTERVAL CHANGE: There were no equivalent studies available for comparison. At this facility, the least significant change in the BMD at the left hip with 95% confidence is 0.903809 gm/cm2 at the hip and 0.716097 g/cm2 at the lumbar spine. Report dictated by: Nancy Robertson PA-c I have personally reviewed this case and agree with the findings above: Electronically Signed: John Robles MD 05/30/2024 3:57 PM EDT Workstation ID: [id number] Narrative 05/30/2024 3:57 PM EDT DUAL-ENERGY X-RAY ABSORPTIOMETRY (DXA) INDICATION: Postmenopausal, screening for osteoporosis, prior fracture, new baseline COMPARISON: There are no equivalent studies available for comparison PROCEDURE: A DXA scan was performed using a Hologic densitometer. The lumbar spine L1-L4 was evaluated as well as bilateral total hip. The T-score compares the patient's bone mineral density with the peak bone mass of young normal patients. According to criteria established by the World Health Organization, patients with T-scores between 1.0 and 2.5 standard deviations BELOW the mean are osteopenic (low bone mass). Patients with T-scores EQUAL TO OR GREATER than 2.5 standard deviations below the mean are osteoporotic. The Z-score compares the patient bone mineral density with age and sex matched peers. According to the International Society for Clinical Densitometry's 2007 consensus conference: In women prior to menopause and men less than age 50, Z-scores, not T-scores are preferred. A Z-score of -2.0 or lower is defined as below the expected range for age and a Z-score above -2.0 is within the expected range for age. The WHO diagnostic criteria may be applied in women in the menopausal transition. Osteoporosis cannot be diagnosed in men under age 50 on the basis of BMD alone. TECHNICAL QUALITY: The study is of good technical quality. RESULTS: Lumbar Spine: The BMD measured in the L1-L4 region is 0.968 g/cm2. The average T-score is -0.7. The Z-score is 1.1. Total Hip: The BMD measured at the left total proximal femur is 0.785 g/cm2. The T-score is -1.3. The Z-score is 0.0. Femoral Neck: The BMD measured at the left femoral neck is 0.581 g/cm2. The T-score is -2.4. The Z-score is -0.8. Total Hip: The BMD measured at the right total proximal femur is 0.762 g/cm2. The T-score is -1.5. The Z-score is -0.2. Femoral neck: The BMD measured at the right femoral neck is 0.567 g/cm2. The T score is -2.5. The Z score is -1.0. Procedure Note John Robles MD - 05/30/2024 DUAL-ENERGY X-RAY ABSORPTIOMETRY (DXA) INDICATION: Postmenopausal, screening for osteoporosis, prior fracture,new baseline COMPARISON: There are no equivalent studies available for comparison PROCEDURE: A DXA scan was performed using a Hologic densitometer. The lumbar spine L1-L4 was evaluated as well as bilateral total hip. The T-score compares the patient's bone mineral density with the peak bonemass of young normal patients. According to criteria established by theChi [facility], patients with T-scores between 1.0 and 2.5standard deviations BELOW the mean are osteopenic (low bone mass). Patients with T-scores EQUAL TO ORGREATER than 2.5 standard deviations below the mean are osteoporotic. The Z-score compares the patient bone mineral density with age and sexmatched peers. According to the International Society for ClinicalDensitometry's 2007 consensus conference: In women prior to menopause andmen less than age 50, Z-scores, not T-scores are preferred. A Z-score of -2.0 or lower is defined as belowthe expected range for age and a Z-score above -2.0 is within theexpected range for age. The WHO diagnostic criteria may be applied inwomen in the menopausal transition. Osteoporosis cannot be diagnosed in men under age 50 on the basis of BMDalone. TECHNICAL QUALITY: The study is of good technical quality. RESULTS: Lumbar Spine: The BMD measured in the L1-L4 region is 0.968 g/cm2. Theaverage T- score is -0.7. The Z-score is 1.1. Total Hip: The BMD measured at the left total proximal femur is 0.785g/cm2. The T-score is -1.3. The Z-score is 0.0. Femoral Neck: The BMD measured at the left femoral neck is 0.581 g/cm2.The T- score is -2.4. The Z-score is -0.8. Total Hip: The BMD measured at the right total proximal femur is 0.762g/cm2. The T-score is -1.5. The Z-score is -0.2. Femoral neck: The BMD measured at the right femoral neck is 0.567 g/cm2.The T score is -2.5. The Z score is -1.0. IMPRESSION: Osteoporosis of the right femoral neck. Osteopenia of the left femoralneck, total hips bilaterally. The ten year fracture risk assessment was not calculated because someT-scores were at or below -2.5. All the treatment decisions require clinical judgment and consideration ofindividual patient factors, including patient preferences, co-morbidities,previous drug use, risk factors not captured in the FRAX model (frailty,falls, vitamin D deficiency, increased bone turnover, interval significant decline in bone density) andpossible under or over estimation of fracture risk by FRAX. Approaches toreduce osteoporosis related fracture risk include optimizing calcium andvitamin D status, appropriate weight bearing exercises and fall-prevention measurements. The NationalOsteoporosis Foundation recommends(http://www.nof.org/hcp/practice/wcrbngsi-pbo-ffbfdsca-guidelines/clin ician s-guide) that FDA-approved medical therapies be considered in postmenopausal women and men aged equal or greater than 50 years with :a) hip or vertebral (clinical or morphometric) fracture; b) T-score of-2.5 or less at the spine or hip; c) Ten-year fracture probability by FRAXof greater than 3% for hip fracture of greater than 20% for major osteoporotic fracture. Secondary causes of bone loss should be evaluated if clinically indicatedsince the etiology of low BMD cannot be determined by BMD measurementalone. FOLLOWUP: Consider repeating the study in 2-3 years to reassess thepatient's status or sooner if there is some new clinical indication. INTERVAL CHANGE: There were no equivalent studies available forcomparison. At this facility, the least significant change in the BMD at the left hipwith 95% confidence is 0.477202 gm/cm2 at the hip and 0.056899 g/cm2 atthe lumbar spine. Report dictated by: Nancy Robertson PA-c I have personally reviewed this case and agree with the findings above: Electronically Signed: John Robles MD 05/30/2024 3:57 PM EDT Workstation ID: [id number] Mimi Geni Rock [facility] DXA ORDERABLES Fin al Result * SCANNED - MAMMO (02/12/2023) Anatomical Region Laterality Modality Other Mimi Wilkerson BROTH MIXER CHART REVIEW TABS F inal Result from Last 3 Months or Most Recently Relevant to Health Maintenance Insurance MEDICARE A & B Member Subscriber Plan / Payer (Ef fective 2022-Present) Name:Elsa Snyder Member ID:[id number] Relation to Subscriber:Self Name:Elsa Snyder Subscriber ID:[id number] Payer ID:[id number] Group ID:Not on file Type:Not on file Address: [facility] [id number] [place] [id number] [facility] Care Teams Clinical Science Liaison Relationship Specialty Start Date End Date Jorge Soares MD [address] [facility] [address] [place] [address] PCP - General Adolescent Medicine 07/28/18
--- OUTSIDE RECORDS SUMMARY | 2025-04-13 11:35 | XMS_ITS | Encounter Summary ---
Author Organization [employer] ([place], [place], [place], [place]) Address [address] [place] [address] Care Team Providers Care Refrigeration System Installer Name Role Phone Jorge Soares MD Primary Care Provider [phone] Danni Daniels MD Unavailable [phone] Reason for Referral * Mammography (Routine) - Authorized Specialty Diagnoses / Procedures Referred By Contac t Referred To Contact Radiology Diagnoses Visit for screening mammogram Procedures MM digital mammo screen with nicole bilateral Jorge Soares MD [address] [place] [address] Phone: tel: fax: [facility] Breast [address] [place] [phone] Phone: tel: fax: Referral ID Status Reason Start Date Expiration Date V isits Requested Visits Authorized [id number] Authorized 02/27/2026 02/27/2027 1 1 Encounter Details Date Type Department Care Team (Late st Contact Info) Description 02/21/2025 Outside Orders [facility] Breast [address] [place] [phone] Jorge Soares MD [address] [place] [address] Visit for screening mammogram (Primary Dx) Social History Tobacco Use Types [...] Date Alberto rded Speak language other than Ghanaian at home Not on file 09/04/2023 Want [...] Info) Description 02/27/2026 1:15 PM EDT Appointment [address] [place] [address] Scheduled Orders Name Type Priority Associated Diagnoses Orde r Schedule MM digital mammo screen with nicole bilateral Imaging Routine Visit for screening mammogram Expected: 02/27/2026, Expires: 02/27/2027 documented as of this encounter Visit Diagnoses Diagnosis Visit for screening mammogram- Primary documented in this encounter Care Teams Refrigeration System Installer Relationship Specialty Start Date End Date Jorge Soares MD [address] [place] [address] PCP - General Adolescent Medicine 02/12/23 Danni Daniels MD [address] [place] [address] 02/21/25 documented as of this encounter
--- OUTSIDE RECORDS SUMMARY | 2025-04-13 11:35 | XMS_ITS | Referral Summary ---
Author Organization [employer] ([place], [place], [place], [place]) Address [address] [place] [address] Care Team Providers Care Spanish Interpreter Name Role Phone Jorge Soares MD Primary Care Provider [phone] Danni Daniels MD Unavailable [phone] Encounters Date Type Department Care Team Description 02/21/2025 Outside Orders [facility] [address] [phone] Jorge Soares MD Visit for screening mammogram (Primary Dx) 02/21/2025 1:15 PM EDT - 02/21/2025 11:59 PM EDT Hospital Encounter [address] [address] Visit for screening mammogram (Primary Dx) Discharge Disposition: Home or Self Care from Last 3 Months Social History Tobacco Use Types Packs/Day Years [...] Date Alberto rded Speak language other than Georgian at home Not on file 09/04/2023 Want [...] Info) Description 02/27/2026 1:15 PM EDT Appointment [address] [address] Procedures Procedure Name Priority Date/Time Associated Diagnosis [...] 3 Months Insurance MEDICARE PART A B [facility] Care Teams Spanish Interpreter Relationship Specialty Start Date End Date Jorge Soares MD [address] [place] [id number] PCP - General Adolescent Medicine 02/12/23 Danni Daniels MD [address] [facility] [address] [place] [address] 02/21/25
--- OUTSIDE RECORDS SUMMARY | 2025-04-13 11:35 | XMS_ITS | Encounter Summary ---
Author Organization [facility] Address [address] [place] [address] Care Team Providers Care Church History Professor Name Role Phone Jorge Soares MD Primary Care Provider Encounter Details Date Type Department Care Team (Late st Contact Info) Description 12/01/2024 Results Follow-Up [facility] ENDOCRINOLOGY [address] [place] [address] Kim Galo, [address] [place] [address] Social History Tobacco Use Types Packs/Day Years [...] Description 05/01/2025 2:10 PM EDT Office Visit [facility] [address] [facility] [address] [place] [phone] Danni Daniels MD [address] [facility] [address] [place] [address] 12/06/2025 3:15 PM EDT Office Visit [facility] ENDOCRINOLOGY [address] [facility] [address] [place] [phone] Kim Galo, [address] [facility] [address] [place] [address] documented as of this encounter Visit Diagnoses Not on filedocumented in this encounter Care Teams Church History Professor Relationship Specialty Start Date End Date Jorge Soares MD [address] [facility] [address] [facility] [address] [place] [address] PCP - General Adolescent Medicine 07/28/18 documented as of this encounter
--- OUTSIDE RECORDS SUMMARY | 2025-04-13 11:36 | XMS_ITS | Encounter Summary ---
Author Organization [facility] Address [address] [place] [address] Care Team Providers Care Lens Generator Name Role Phone Jorge Soares MD Primary Care Provider [phone] Reason for Visit * Reason Onset Date Comments HIGH- MEDICAL QUESTION 07/13/2024 Encounter Details Date Type Department Care Team (Late st Contact Info) Description 07/13/2024 Telephone [facility] GYNECOLOGY [address] [address] Danni Daniels MD [address] [place] [phone] HIGH- MEDICAL QUESTION Social History Tobacco Use Types Packs/Day Years [...] on file documented as of this encounter Miscellaneous Notes * Telephone Encounter - Monica Gonzalez - 03/22/2025 2:09 PM EDT Patient's visits were coded correctly according to ABNs signed and no remaining balances exist for patient after insurance was billed. * Telephone Encounter - Kirsten Hester MA - 07/28/2024 8:52 AM EST I have contacted Tasha regarding her billing issue to discuss what happened in our office regarding her last office visit. Patient was told that Medicare pays for an annual exam every 24 months. In 2022 she did not sign a waiver for an annual exam (she did sign a pap only waiver for P&[facility] as sherequested a pap), and Gema would have been instructed to bill that visit as problem/not annual. In 2023 Tasha signed the waiver/ABN for annual exam and Gema would have been asked to bill that visit asan annual exam. I'm not able to see how both of those visits were coded, but if she was billed as an annual 2 yearsin a row, obviously the visit in 2023 will not be covered. Monica, the patient states that she has not spoken with you but I thought this may help in trying to figure out what may have happened. Thanks for your help with this. * Telephone Encounter - Daniella Evans MA - 07/13/2024 12:53 PM EST Pt states that she had received a bill for when she came to see Gema Wilkerson. She was assured by 3 different people that it would be paid when sent in with a problem code. Billing reviewed and states that the code that was sent in needed an addendum. Pt is concerned as this year was suppose to be sent as problem hvac services professional exam. Please advise. * Telephone Encounter - Ata Richter RegSched Rep - 07/13/2024 11:39 AM EST Caller: Elsa Snyder Relationship: Self Best call back number: [phone] What is the best time to reach you: ANY Who are you requesting to speak with (clinical staff, provider, specific staff member): KIRSTEN What was the call regarding: PT STATES SHE HAS A MEDICAL QUESTION SHE NEEDS TO SPEAK TO KIRSTEN ABOUT documented in this encounter Plan of Treatment Upcoming Encounters Date Type Department Care Team (Late st Contact Info) Description 05/01/2025 2:10 PM EDT Office Visit [facility] [address] [facility] [address] [place] [address] Danni Daniels MD [address] [facility] [address] [place] [address] 12/06/2025 3:15 PM EDT Office Visit [facility] ENDOCRINOLOGY [address] [place] [address] Kim Galo, [address] [place], [place] [phone] documented as of this encounter Visit Diagnoses Not on filedocumented in this encounter Care Teams Lens Generator Relationship Specialty Start Date End Date Jorge Soares MD [address] [facility] [address] [place] [address] PCP - General Adolescent Medicine 07/28/18 documented as of this encounter
[2025-04-13 12:20] LABS: Hematocrit 38.5 % (37.0-47.0); Hemoglobin 12.9 g/dL (12.2-16.2); Immature Granulocytes % 0.2 %; Mean Corpuscular HGB Conc 33.5 g/dL (31.8-35.4); Mean Corpuscular Hemoglobin 31.9 pg (27.0-31.2); Mean Corpuscular Volume 95.1 fl (81-99); Nucleated Red Blood Cells % 0 %; Platelet Count 188 K/mm3 (142-424); Red Blood Count 4.05 M/mm3 (4.20-5.40); Red Cell Distribution Width-SD 45.1 fL; White Blood Count 4.5 K/mm3 (4.8-10.8)
[2025-04-13 12:47] LABS: Albumin Level 4.4 g/dl (3.5-5.0); Chloride 107 mmol/L (98-107); Sodium 142 mmol/L (136-145)
[2025-04-13 12:48] LABS: Potassium 3.9 mmoL/L (3.5-5.1)
[2025-04-13 12:50] LABS: Alanine Aminotransferase 19 U/L (12-78); Albumin/Globulin Ratio 1.8 (1.1-1.8); Alkaline Phosphatase 68 U/L (38-126); Anion Gap 8.9 mEq/L (5-15); Aspartate Amino Transferase 62 U/L (14-36); Bilirubin,Total 1.4 mg/dl (0.2-1.3); Blood Urea Nitrogen 19 mg/dl (7-17); Carbon Dioxide 30 mmol/L (22.0-30.0); Cholesterol 181 mg/dl (140-200); Creatinine,Serum 0.70 mg/dl (0.52-1.04); Estimated Glomerular Filt Rate 83 ml/min (>60); GFR (African American) 101 ML/MIN (>60); Globulin 2.5 g/dL (1.3-3.2); Total Protein,Serum 6.9 g/dl (6.3-8.2); Triglycerides 88 mg/dl (30-150)
[2025-04-13 12:51] LABS: Calcium 9.2 mg/dl (8.4-10.2); Glucose 104 mg/dl (74-100); HDL Cholesterol 55 mg/dl (40-60)
[2025-04-13 13:08] LABS: 25-OH Vitamin D, Total 66.3 ng/mL (30-100); Triiodothryronine (T3) Uptake 33 % (23.5-40.5)
[2025-04-13 13:09] LABS: Free Thyroxine Index 2.2 ug/dL (5.93-13.13); T4 (Thyroxine) 6.6 ug/dl (5.53-11.0)
[2025-04-13 13:23] LABS: Thyroid Stimulating Hormone 0.71 uIU/mL (0.465-4.68)
== END 2025-04-13 23:59 | disposition home or self-care (01) ==
LOC: LAB 11:33
PROVIDERS: PCP Internal Medicine Adolescent Medicine; Visit Provider Internal Medicine Adolescent Medicine
DX: E55.9 Vitamin D deficiency, unspecified (principal); E78.2 Mixed hyperlipidemia; E89.0 Postprocedural hypothyroidism; M81.0 Age-related osteoporosis without current pathological fracture
CPT/HCPCS: 36415; 80053; 80061; 82306; 84436; 84443; 84479; 85025